=== PATIENT | female | born 1930 | race Caucasian/White ===

== ENCOUNTER 2017-09-25 07:13 | Inpatient (IN) | payer OTHER ==
[~2017-09-25] VITALS: Ht 157.5 cm; Wt 59.0 kg
[~2017-09-25 07:13] MED LIST: ACETAMINOPHEN-1 EAC1 PO; ACETAMINOPHEN325 M1 PO; ASPIR 8181 MG PO; ASPIRIN EC81 M1 PO; BACTRIM DS TAB1 EACH PO; BENEFIBER1 EAC1 PO; BENEFIBER98 GM; BYSTOLIC10 MG; CALCIUM 500 +1 EAC5 PO; CALCIUM 500 +1 EAC6 PO; CARDIZEM CD180 MG; CARVEDILOL3.125 MG PO; CENTANY30 GM TOP; CHLOR-TABLET4 MG PO; CLONAZEPAM 0.50.5 M1 PO; CLORTAB PO; CYMBALTA60 MG PO; DILTIAZEM 24HR180 M2 PO; DOXYCYCLINE 10100 MG PO; DULCOLAX5 MG PO; DULOXETINE HCL60 MG PO; ELIQUIS2.5 MG PO; ESTRADIOL 1 MG T1 M1 VAG; FAMOTIDINE 40 M40 M1 PO; I-CAPS AREDS S1 EACH PO; I-CAPS WITH LU1 EACH PO; IMDUR 30 MG TAB30 M1 PO; MYRBETRIQ50 MG; MYRBETRIQ50 MG PO; NASONEX17 GM; NASONEX17 GM NASAL; NITROGLYCERIN0.4 MG SL; NITROGLYCERIN0.4 MG SUBLING; NITROSTAT0.4 MG SL; NORVASC 2.5 MG2.5 M1 PO; PEPCID20 MG PO; PERCOCET PO; PLAVIX 75 MG TA75 M1 PER TUBE; PLAVIX 75 MG TA75 M1 PO; PRESERVISION AREDS PO; PRESERVISION T1 EACH PO; PROAIR HFA8.5 GM INH; PROVENTIL HFA6.7 G1 INH; QVAR 80 MCG INH; QVAR HFA 880 MCG/UN1 INH; QVAR8.7 G1; QVAR8.7 G1 INH; ROBAXIN 750 MG750 M1 PO; SANCTURA20 MG PO; SINGULAIR 10 MG10 M1 PO; SM COMPLETE SE1 EACH PO; THERA-M CAPLET1 EAC1 PO; TOPROL XL25 MG PO; TRIAMCINOLONE A80 GM TOP; TUMS PO; TYLENOL325 MG PO; UNICOMPLEX M TA1 TA1 PO; VENTOLIN HFA 1818 GM INH; ZOCOR 20 MG TAB20 M1 PO; ZOCOR20 MG PO
[2017-09-25 07:22] VITALS: BP 156/64
--- NOTE | 2017-09-25 07:59 | NUR ---
LAB DRAWING BLOOD
[2017-09-25 08:13] LABS: HEMATOCRIT 38.6 % (37.0-47.0); MPV 9.1 fl. (7.2-11.1); NUCLEATED RBCS 0 /100WBC; WBC 15.2 thou/uL (4.0-11.0)
[2017-09-25 08:14] LABS: HEMOGLOBIN 12.4 gm/dL (12.0-15.0); MCH 32.1 pg (26.0-34.0); MCHC 32.2 g/dL (28.0-37.0); MCV 99.8 fL (80.0-100.0); PLATELET COUNT* 159 thou/uL (150-400); RBC 3.86 mil/uL (4.20-5.00); RDW-CV 16.4 % (10.5-14.5)
[2017-09-25 08:22] LABS: ANION GAP 5 mmol/L (7-16); BUN 35 mg/dL (7-18); CALCIUM 9.2 mg/dL (8.5-10.1); CHLORIDE 103 mmol/L (98-107); CO2 32 mmol/L (21-32); CREATININE 1.3 mg/dL (0.6-1.3); GLUCOSE 115 mg/dL (70-99); POTASSIUM 4.6 mmol/L (3.5-5.1); SODIUM 140 mmol/L (136-145)
[2017-09-25 08:30] LABS: ALBUMIN 3.5 g/dL (3.4-5.0); ALKALINE PHOSPHATASE 124 U/L (46-116); SGOT 26 U/L (15-37); SGPT 31 U/L (30-65); TOTAL BILIRUBIN 0.6 mg/dL (<0.1-1.0); TOTAL PROTEIN 7.2 g/dL (6.4-8.2); TROPONIN-I LEVEL <0.06 ng/mL (<0.06)
[2017-09-25 08:58] LABS: ABSOLUTE BASOPHILS 0.2 thou/uL (0.0-0.2); ABSOLUTE LYMPHOCYTES 1.1 thou/uL (0.8-5.3); ABSOLUTE MONOCYTES 0.9 thou/uL (0.0-1.2); ABSOLUTE NEUTROPHILS 13.1 thou/uL (1.6-8.1); PLATELET ESTIMATE ADEQUATE
[2017-09-25 10:23] LABS: BE 2.5 mmol/L (-2 to +3); HCO3 27.8 mmol/L (22.0-26.0); PCO2 45.8 mmHg (35.0-45.0); PO2 80.1 mmHg (75.0-100.0); pH 7.401 (7.340-7.450)
[2017-09-25 10:50] VITALS: BP 129/51
--- NOTE | 2017-09-25 11:04 | NUR ---
RECEIVED REPORT FROM GASTON IN E.D. AT 1047. LABS REVIEWED. PT ARRIVED TO TELEMETRY AT 1105 VIA CART WITH DAUGHTER AT SIDE.
[2017-09-25 11:30] VITALS: BP 145/57
--- NOTE | 2017-09-25 13:51 | EKG ---
[place] [address] ELECTROCARDIOGRAM REPORT Name: JACKIE TRAN Room: [address] ADM IN .R.#: [id number] Admission: 09/25/17 Attend Phys: Padilla Gonzales Discharge: Date of : 30 Report #: [id number] THIS REPORT FOR: //name// [facility] ED Test Date: 2017-09-25 Test Time: 07:25:29 Pat Name: JACKIE TRAN Department: Room: [facility] Gender: F Kit Assembler: : 1930 Requested By: Afsaneh Doherty Order Number: [id number] MD: Anton Nelson Measurements Intervals [place] Rate: 71 P: 90 MO: 178 QRS: 70 QRSD: 111 T: 54 QT: 410 QTc: 446 Interpretive Statements Sinus rhythm Compared to ECG 08/11/2017 12:09:50 2:1 AV block no longer present Electronically Signed On 09-25-2017 13:51:26 HAT STOCK LAMINATING MACHINE OPERATOR by Anton Nelson [email or web address] <ELECTRONICALLY SIGNED> By: Anton Nelson MD, [facility] 09/25/17 1351 4 4 Anton Nelson MD, FAC /EPI
[2017-09-25 15:30] VITALS: BP 133/61
[2017-09-25 20:00] VITALS: BP 114/51
--- NOTE | 2017-09-25 20:04 | NUR ---
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 PT A&O X4, AUTOMATION ENGINEERING MANAGER TRACING NSR, VSS ON 2L O2 NC, WORN PRN AT HOME. PT LOST HER RESCUE INHALER AT HOME RESULTING IN SOA TODAY. PT SBA TO BATHROOM, FALL PRECAUTIONS IN PLACE, PT AGREES TO SCD'S. PT AFEBRILE, DENIES PAIN, PERRL, PEDAL AND RADIAL PULSES NORMAL, NO EDEMA NOTED. LCTAB/DIMINISHED. PT REPORTS THAT SHE WANTS TO BE DNR, NURSE DISCUSSED WHAT THAT MEANT AND PT STATED SHE UNDERSTOOD, WISHES WERE VERIFIED BY TWO NURSES , Thais AND DR Torsten TO BE NOTIFIED. PT LIVES IN A HOUSE WITH HER SON, WALKS INDEPENDENTLY BETWEEN FURNITURE OR OCC. USES A WALKER TO AMBULATE. REPORT TO SENIOR STATISTICAL PROGRAMMER FOR CONTINUED CARES.
[2017-09-26] VITALS: BP 141/54
[2017-09-26 04:09] VITALS: BP 149/68
--- NOTE | 2017-09-26 05:19 | NUR ---
PT A/O TO SELF/, UNABLE TO RECALL NAME OF HOSPITAL, AND STATED SHE CAN'T REMEMBER HER ADDRESS, SR ON THE MONITOR, PLACED ON 2L NC DUE TO 90% ON RA, REPORTED NO PAIN/SOA, UP SBA TO BATHROOM, MEDS/ASSESSMENT PER CHARTING, IN FLUIDS INFUSING PER ORDERS, HOURLY ROUNDING/FALL PRECAUTIONS IN PLACE, VSS, WILL CONT TO MONITOR.
[2017-09-26 08:15] VITALS: BP 173/78
[2017-09-26 12:19] VITALS: BP 143/66
--- NOTE | 2017-09-26 15:38 | NUR ---
INITIAL ASSESSMENT: Pt evaluated for d/c planning needs. Reviewed chart and spoke with nurse and pt. Pt is alert and oriented. Pt and her son live together in house. Pt said she was independent with and used walker for ambulation. Pt has home 02. Pt said she has not had home health in the past. Pt plans on returning home on d/c from hospital. Will remain available to assist as needed.
[2017-09-26 16:11] VITALS: BP 144/74
--- NOTE | 2017-09-26 17:00 | NUR ---
RECEIVED REPORT FROM MARA RN. PT LAYING IN SEMI-FOWLERS POSITION IN BED UPON INITIAL ASSESSMENT. ORIENTED X4, ABLE TO COMMUNICATE NEEDS TO STAFF. TRANSFER TO CHAIR FOR BREAKFAST WITH SBA. VS OBTAINED. ASSESSMENT COMPLETE. SR ON MONITOR. SATS >92% ON 2L O2. TOLERATING RESP TREATMENTS WELL. C/O DYSPNEA X2 TODAY. REINFORCED TEACHING R/T SEGOVIA AND RECOVERY BY BREATHING WITH SLOWER BREATHS. THERAPEUTIC COMMUNICATION TECHNIQUE: PRESENCE, LISTENING. CONTACTED RESPIRATORY THERAPIST FOR ASSESSMENT WELL. CONTACTED PHYSICIAN TO REPORT THAT PT REQUESTING XRAY EVAL OF NECK PAIN 5/10 PER NUMERIC PAIN SCALE. PT STATES SHE FELL ABOUT A MONTH AGO OR LONGER AND SINCE THEN HER NECK HURTS. PT STATES THAT SHE DID NOT GO TO DOCTOR AT TIME OF FALL. DIAGNOSTIC IMAGING ORDER PLACED, RADIOLOGY COMPLETED. CONTACTED PHYSICIAN TO REQUEST HOME DOSE OF DILTIAZEM 180 MG BID INSTEAD OF DAILY. ORDER RECEIVED. NEEDED ITEMS AND CALL LIGHT IN REACH OF PT AT ALL TIMES. BED/CHAIR ALARM IN USE PHYSICIAN TO
[2017-09-26 20:15] VITALS: BP 151/59
[2017-09-27] VITALS (7 sets, daily range): BP systolic 132–167; BP diastolic 54–67
[2017-09-27 04:41] LABS: HEMATOCRIT 32.1 % (37.0-47.0); HEMOGLOBIN 10.7 gm/dL (12.0-15.0); MCHC 33.5 g/dL (28.0-37.0); MCV 98.6 fL (80.0-100.0); MPV 8.8 fl. (7.2-11.1); RBC 3.25 mil/uL (4.20-5.00); RDW-CV 15.8 % (10.5-14.5); WBC 13.6 thou/uL (4.0-11.0)
[2017-09-27 05:24] LABS: CALCIUM 8.9 mg/dL (8.5-10.1); CREATININE 1.2 mg/dL (0.6-1.3); MAGNESIUM 1.8 mg/dL (1.8-2.4); POTASSIUM 4.5 mmol/L (3.5-5.1)
--- NOTE | 2017-09-27 05:36 | NUR ---
PT SLEPT AT INTERVALS DURING THE NIGHT, IV FLUIDS INFUSED, PLEASANT, UP WITH ASSIST AND WALKER TO BSC OR BATHROOM, STRESS INCONTINENCE, REMAINS ON 02 AT 3L/NC, BREATHING TREATMENT BY RT, SOA WITH EXERTION, CALL LIGHT IN REACH, BED ALARM ON FOR SAFETY, WILL CONTINUE TO MONITOR
--- NOTE | 2017-09-27 16:52 | NUR ---
RECEIVED REPORT FROM MARA RN. PT SLEEPING DURING BS REPORT. ONCE AWAKE, PT IS ORIENTED X4, ABLE TO COMMUNICATE NEEDS TO STAFF. TRANSFERS TO CHAIR WITH ASSIST OF 1 TO BSC/CHAIR. VS OBTAINED. ASSESSMENT COMPLETE. SR ON TELE MONITOR. SATS >92% ON 2L NC OXYGEN. DR. OLVERA TO BS FOR DAILY ASSESSMENT. PT HAS NOT C/O PAIN OR RESPIRATORY DISTRESS. PT HAS BEEN ABLE TO ENJOY RESTFUL PERIODS TODAY. PT HAS BEEN UP TO CHAIR FOR MEALS. DTR VISITING AT BS THIS AFTERNOON. NEEDED ITEMS AND CALL LIGHT IN REACH. BED/CHAIR ALARM IN USE AT ALL TIMES.
[2017-09-28 03:47] VITALS: BP 143/59
--- NOTE | 2017-09-28 05:58 | NUR ---
ASSUMED CARE OF PATIENT AT 1900 THE PATIENT BEGAN IN SR ON THE MONITOR O2 SAT MAINTAINED ON 2L NC IN AM NOTED CHANGE IN RHYTHM ON TELEMONITOR CONFIRMED WITH BEDSIDE EKG PATIENT TRANTITIONED TO CONTROLLED AFIB RATE 106 PATIENT CONTINUES REGIMEN FOR HX AFIB ET DENIES ANY S/SX OF DISCOMFORT DURING OCCURENCE SHE CONTINUES TO BE UP TO BSC WITH ASSIST SAFETY INTERVENTIONS CONTINUE BED LOWERED WHEELS LOCKED CALL LIGHT IN REACH SIDE RAILS UP REPORT TO BE GIVEN TO ONCBAYLEE MANDUJANO
[2017-09-28 09:15] VITALS: BP 117/54
[2017-09-28] MEDS ORDERED: QVAR8.7 GM INH (10:33)
[2017-09-28] MEDS ORDERED: VENTOLIN HFA 1818 GM INH (10:33)
[2017-09-28] MEDS ORDERED: LEVAQUIN 750 M750 MG PO (10:33)
[2017-09-28 11:51] VITALS: BP 117/54
[2017-09-28 12:05] VITALS: BP 112/56
--- NOTE | 2017-09-28 12:29 | EKG ---
[place] [address] ELECTROCARDIOGRAM REPORT Name: JACKIE TRAN Room: [address] ADM IN M.R.#: [id number] Admission: 09/25/17 Attend Phys: Padilla Gonzales Discharge: Date of : 30 Report #: [id number] THIS REPORT FOR: //name// [facility] Test Date: 2017-09-28 Test Time: 04:51:41 Pat Name: JACKIE TRAN Department: Room: [address] Gender: F Manager Compensation: [facility] : 1930 Requested By: Coery Morton Order Number: [id number] Justine MD: Neto Cochran Measurements Intervals [place] Rate: 106 P: [place]: QRS: 54 QRSD: 90 T: 50 QT: 323 QTc: 429 Interpretive Statements Atrial fibrillation Compared to ECG 09/25/2017 07:25:29 Sinus rhythm no longer present Electronically Signed On 09-28-2017 12:29:13 DRIVE IN TELLER by Neto Cochran [email or web address] <ELECTRONICALLY SIGNED> By: Neto Cochran MD, [facility] 09/28/17 1229 D: [id number] 0 Neto Cochran MD, FACC /EPI
== END 2017-09-28 17:15 | disposition home health service (06) | DRG 871 ==
LOC: M.ERS 07:13 → M.2W 10:25 → M.TBA-ER 10:25 → M.2W 11:15
PROVIDERS: Internal Medicine; Personal Emergency Response Attendant; ADMIT Internal Medicine
DX: A41.9 Sepsis, unspecified organism (principal); J15.9 Unspecified bacterial pneumonia; J96.01 Acute respiratory failure with hypoxia; J44.0 Chronic obstructive pulmonary disease with (acute) lower respiratory infection; E44.0 Moderate protein-calorie malnutrition; E78.00 Pure hypercholesterolemia, unspecified; N18.3 Chronic kidney disease, stage 3 (moderate); I12.9 Hypertensive chronic kidney disease with stage 1 through stage 4 chronic kidney disease, or unspecified chronic kidney disease; K21.9 Gastro-esophageal reflux disease without esophagitis; I48.91 Unspecified atrial fibrillation; I25.10 Atherosclerotic heart disease of native coronary artery without angina pectoris; I67.9 Cerebrovascular disease, unspecified; M47.812 Spondylosis without myelopathy or radiculopathy, cervical region; Z79.899 Other long term (current) drug therapy; Z87.891 Personal history of nicotine dependence; Z68.23 Body mass index [BMI] 23.0-23.9, adult; Z86.73 Personal history of transient ischemic attack (TIA), and cerebral infarction without residual deficits; I25.2 Old myocardial infarction; Z95.5 Presence of coronary angioplasty implant and graft

== ENCOUNTER 2017-12-21 09:28 | Inpatient (IN) | payer OTHER ==
[~2017-12-21] VITALS: Ht 157.5 cm; Wt 60.9 kg
[~2017-12-21 09:28] MED LIST changes: +LEVAQUIN 750 M750 MG PO; +QVAR8.7 GM INH
[2017-12-21 09:32] VITALS: BP 161/108
[2017-12-21 10:03] LABS: HEMATOCRIT 37.8 % (37.0-47.0); HEMOGLOBIN 12.2 gm/dL (12.0-15.0); MCH 31.6 pg (26.0-34.0); MCHC 32.4 g/dL (28.0-37.0); MCV 97.5 fL (80.0-100.0); MPV 8.1 fl. (7.2-11.1); NUCLEATED RBCS 0 /100WBC; PLATELET COUNT* 194 thou/uL (150-400); RBC 3.87 mil/uL (4.20-5.00); RDW-CV 15.7 % (10.5-14.5); WBC 11.7 thou/uL (4.0-11.0)
[2017-12-21 10:05] LABS: BE 2.5 mmol/L (-2 to +3); HCO3 27.6 mmol/L (22.0-26.0); PCO2 44.8 mmHg (35.0-45.0); PO2 96.5 mmHg (75.0-100.0); pH 7.408 (7.340-7.450)
[2017-12-21 10:11] LABS: ANION GAP 6 mmol/L (7-16); APTT 31.3 Seconds (25.0-31.3); BUN 31 mg/dL (7-18); CALCIUM 8.9 mg/dL (8.5-10.1); CHLORIDE 106 mmol/L (98-107); CO2 30 mmol/L (21-32); CREATININE 1.3 mg/dL (0.6-1.3); GLUCOSE 115 mg/dL (70-99); INR 1.1; POTASSIUM 4.7 mmol/L (3.5-5.1); PROTIME 10.3 Seconds (9.20-11.50); SODIUM 142 mmol/L (136-145)
[2017-12-21 10:21] LABS: ALBUMIN 3.5 g/dL (3.4-5.0); ALKALINE PHOSPHATASE 122 U/L (46-116); NT-PRO BRAIN NAT PEPTIDE 3156 pg/mL (<300); SGOT 26 U/L (15-37); SGPT 37 U/L (30-65); TOTAL BILIRUBIN 0.5 mg/dL (<0.1-1.0); TOTAL PROTEIN 7.3 g/dL (6.4-8.2); TROPONIN-I LEVEL <0.06 ng/mL (<0.06)
[2017-12-21 10:26] LABS: ABSOLUTE EOSINOPHILS 0.2 thou/uL (0.0-0.7); ABSOLUTE LYMPHOCYTES 0.9 thou/uL (0.8-5.3); ABSOLUTE MONOCYTES 1.1 thou/uL (0.0-1.2); ABSOLUTE NEUTROPHILS 9.5 thou/uL (1.6-8.1); ATYPICAL LYMPHS 1 %; PLATELET ESTIMATE ADEQUATE
[2017-12-21] MEDS ORDERED: CARDIZEM CD 18180 M3 PO (11:02)
[2017-12-21] MEDS ORDERED: PEPCID20 MG PO (11:04)
[2017-12-21] MEDS ORDERED: TRIAMCINOLONE A80 G2 TOP (11:05)
[2017-12-21] MEDS ORDERED: DULCOLAX5 MG PO (11:06)
[2017-12-21] MEDS ORDERED: TUMS PO (11:06)
[2017-12-21] MEDS ORDERED: LOPRESSOR25 PO (11:09)
[2017-12-21 12:04] VITALS: BP 173/101
[2017-12-21 12:10] VITALS: BP 150/89
[2017-12-21 16:30] VITALS: BP 135/69
--- NOTE | 2017-12-21 16:59 | EKG ---
[place] [address] ELECTROCARDIOGRAM REPORT Name: JACKIE TRAN Room: [address] ADM IN [facility].#: [id number] Admission: 12/21/17 Attend Phys: Liam Myers MD Discharge: Date of : 30 Report #: [id number] THIS REPORT FOR: //name// [facility] ED Test Date: 2017-12-21 Test Time: 09:39:54 Pat Name: JACKIE TRAN Department: Room: [facility] Gender: F Wine Steward/Stewardess: GIL : 1930 Requested By: James Pena Order Number: [id number] MD: Anton Nelson Measurements Intervals [place] Rate: 112 P: [place]: QRS: 24 QRSD: 105 T: 9 QT: 349 QTc: 477 Interpretive Statements Atrial flutter Borderline low voltage, extremity leads RSR' in V1 or V2, probably normal variant Minimal ST depression, diffuse leads Borderline prolonged QT interval Compared to ECG 09/28/2017 04:51:41 RSR' in V1 or V2 now present ST (T wave) deviation now present Atrial fibrillation no longer present Electronically Signed On 12-21-2017 16:58:51 CDT by Anton Nelson [email or web address] <ELECTRONICALLY SIGNED> By: Anton Nelson MD, [facility] 12/21/17 1658 Anton Nelson MD, [facility] /EPI
--- NOTE | 2017-12-21 18:33 | NUR ---
PATIENT RESTING IN BED. UP TO BSC WITH ASSISTX1. PATIENT RECEIVED 1X LASIX PER IV AND HAS ORDER FOR US GUIDED THORACENTESIS TOMORROW. VITAL SIGNS STABEL. AOX4. PATIENT IS HARD OF HEARING AND HAS VISION DEFFICIT. HEARING AIDS AND GLASSESS AT HOME, FAMILY INSTRUCTED TO BRING FOR PATIENT USAGE. HOURLY RONDING COMPLETED FOR PATIENT SAFETY AND PATIENT PROGRESSING TOWARDS GOALS. A FLUTTER ON MONITOR.
[2017-12-21 20:00] VITALS: BP 133/63
[2017-12-22] VITALS: BP 136/67
--- NOTE | 2017-12-22 03:46 | NUR ---
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 DENIES PAIN, HOURLY ROUNDING COMPLETED, CALL LIGHT WITHIN REACH. FALL PRECAUTIONS IN PLACE
[2017-12-22 04:00] VITALS: BP 106/57
[2017-12-22 05:14] LABS: ABSOLUTE LYMPHOCYTES 0.4 thou/uL (0.8-5.3); ABSOLUTE MONOCYTES 0.2 thou/uL (0.0-1.2); ABSOLUTE NEUTROPHILS 6.1 thou/uL (1.6-8.1); BASOPHILS 0.5 %; HEMATOCRIT 36.5 % (37.0-47.0); HEMOGLOBIN 12.3 gm/dL (12.0-15.0); LYMPHOCYTES 6.6 %; MCH 32.9 pg (26.0-34.0); MCHC 33.8 g/dL (28.0-37.0); MCV 97.3 fL (80.0-100.0); MONOCYTES 2.6 %; MPV 8.4 fl. (7.2-11.1); NUCLEATED RBCS 0 /100WBC; PLATELET COUNT* 181 thou/uL (150-400); POLYS 90.3 %; RBC 3.76 mil/uL (4.20-5.00); RDW-CV 15.8 % (10.5-14.5); WBC 6.7 thou/uL (4.0-11.0)
[2017-12-22 05:49] LABS: CALCIUM 9.3 mg/dL (8.5-10.1); CREATININE 1.5 mg/dL (0.6-1.3); POTASSIUM 4.2 mmol/L (3.5-5.1)
[2017-12-22 08:00] VITALS: BP 142/73
--- NOTE | 2017-12-22 09:24 | CON ---
[address] [address] CONSULTATION Name: JACKIE TRAN Room: [address] IN M.R.#: [id number] Admission: 12/21/17 Attend Phys: Liam Myers MD Discharge: Date of : 30 Report #: [id number] THIS REPORT FOR: //name// CC: Liam Mo MD [facility] TYPE OF REPORT: Cardiology consultation. INDICATION: Congestive heart failure. HISTORY OF PRESENT ILLNESS: The patient is a very pleasant 87-year-old white female who was admitted through the Emergency Room this morning, presenting with complaints of neck pain as well as dyspnea on exertion. By chest x-ray, she is noted to have a large right-sided pleural effusion. Her NT-pro-BNP was elevated consistent with acute heart failure. She has a history of coronary artery disease with percutaneous coronary intervention on 3 separate occasions. By echocardiogram, she appears to have preserved left ventricular systolic function. She denies any chest pain, tightness or pressure. She is not having palpitations, although she does have a history of chronic atrial flutter. Rate control has been somewhat difficult; however, with a combination of metoprolol succinate and diltiazem, she appears to be adequately rate controlled presently. She is chronically anticoagulated with Eliquis and having no bleeding problems. PAST MEDICAL HISTORY: 1. Chronic atrial flutter. 2. Coronary artery disease. 3. Hypertension. 4. Hyperlipidemia. 5. Chronic renal insufficiency. 6. COPD. 7. Diastolic heart failure. 8. TIA. 9. History of CVA. 10. GERD. PAST SURGICAL HISTORY: Previous carotid endarterectomy. FAMILY HISTORY: Noncontributory. SOCIAL HISTORY: The patient does not smoke. She does not drink alcohol. ALLERGIES: [place] [address] CONSULTATION Name: JACKIE TRAN Room: [address]#: [id number] Admission: 12/21/17 Attend Phys: Liam Myers MD Discharge: Date of : 30 Report #: [id number] HOME MEDICATIONS: Tylenol p.r.n., albuterol 2 puffs q. 4 hours p.r.n., Eliquis 2.5 mg p.o. b.i.d., aspirin 81 mg p.o. at bedtime, QVAR inhaler b.i.d., Dulcolax 5 mg daily, Tums 500 mg 2 tablets 4 times daily, Os-Bentley 500 mg 1 tablet daily, calcium with D supplement capsule at bedtime, chlorpheniramine 4 mg q. 4 hours p.r.n., diltiazem CD 180 mg at bedtime and 240 mg every day, duloxetine 60 mg daily, Pepcid 20 mg 2 tablets daily, metoprolol succinate 25 mg daily, Myrbetriq 50 mg daily, Nasonex spray 2 puffs daily, Singulair 10 mg daily, Thera-M caplet 1 daily, Nitrostat p.r.n., Aristocort cream topically 2-4 times daily and PreserVision eyedrops daily. PHYSICAL EXAMINATION: VITAL SIGNS: Blood pressure 173/101 and pulse presently in the 60s and irregular. GENERAL: This is an elderly white female who is in no distress. Mood and affect appropriate. HEENT: Extraocular muscles intact. NECK: Shows no jugular venous distention. I do not appreciate carotid bruit. CHEST: Reveals diminished breath sounds with absence of breath sounds in the right base. CARDIOVASCULAR: Reveals an irregularly irregular rhythm without gallop or murmur. ABDOMEN: Reveals normal bowel sounds. EXTREMITIES: Examination extremities show no edema. SKIN: Warm and dry. RADIOLOGICAL DATA: A 12-lead EKG shows atrial flutter with a rapid ventricular response rate. On telemetry, she is in atrial flutter with a controlled ventricular response rate. Chest x-ray shows a right pleural effusion and mild cardiomegaly. LABORATORY DATA: Labs were reviewed and were remarkable for BUN 31 and creatinine 1.3. Troponin of less than 0.06. NT-pro-BNP of 3156. IMPRESSION AND RECOMMENDATIONS: 1. Fdbjy-yt-nrkqsxl diastolic heart failure. We will give bolus IV Lasix and check labs in a.m. We will obtain echocardiogram to reevaluate left ventricular systolic function. 2. Coronary artery disease, presently stable. She is not having angina. 3. Atrial flutter. Continue medications outlined above for rate control. There have been some discussions for possible pacemaker placement to facilitate rate control in this patient. 4. Hypertension. We will adjust blood pressure medications as needed. 5. Hyperlipidemia. The patient has been having some myalgias and is off her statin agent presently. [address] [address] CONSULTATION Name: JACKIE TRAN Room: [facility] IN M.R.#: [id number] Admission: 12/21/17 Attend Phys: Liam Myers MD Discharge: Date of : 30 Report #: [id number] 6. Chronic renal insufficiency, appears relatively stable at this time. 7. Chronic obstructive pulmonary disease, presently stable. <ELECTRONICALLY SIGNED> By: Anton Nelson MD, FACC 12/22/17 0924 [id number] Nelson MD, FACC /nt
[2017-12-22 11:36] VITALS: BP 139/80
[2017-12-22 12:26] LABS: BF RBC 23680 /mm3; TOTAL CELL COUNT 928 /mm3
[2017-12-22 12:27] LABS: CLARITY SLIGHTLY HAZY; COLOR RED; TOTAL VOLUME 460 ml
[2017-12-22 12:32] LABS: BF LYMPHOCYTES 78 %; BF MONOCYTES 15 %; BF POLYS 7 %; BF TISSUE 4 /100 WBC
[2017-12-22 12:33] LABS: SOURCE THORACENTESIS
--- NOTE | 2017-12-22 15:05 | NUR ---
CM ASSESSMENT: Pt is A&O. Resides at home with her son. Independent with ADLs. Pt has a walker that she can use for mobility. Pt wears home o2 at [facility]. No hx of HH or SNF. Pt had thora today. Goal is to return home once medically stable. Following.
[2017-12-22 15:24] VITALS: BP 120/54
--- NOTE | 2017-12-22 18:40 | NUR ---
PATINET RESTING IN BED WTH FAMILY AT BEDSIDE. VITAL SIGNS STABLE ANDPAITET IN NO APPARENT DISTRESS AT THIAS TIME. THOARCENTESIS WAS COMPLETED TODAY. HOURLY ROUNDING COMPLETED FOR PATIETN SAFETY AND PATINET IS PROGRESSING TOWARDS GOALS. PLAN IS FOR POSSIBLE PACEMAKER PLACEMENT ON FRIDAY.
[2017-12-22 19:46] VITALS: BP 112/65
[2017-12-23] VITALS: BP 116/74
--- NOTE | 2017-12-23 03:56 | NUR ---
ASSUMED CARE OF PT AT 1930, NURSING ASSESSMENT COMPLETED AT START OF SHIFT. PT TRACING AFLUTTER ON HEART MONITOR, HOURLY ROUNDING COMPLETED THIS SHIFT, FALL PRECAUTIONS IN PLACE, CALL LIGHT WITHIN REACH. NO CONCERNS VOICED THIS SHIFT.
[2017-12-23 04:00] VITALS: BP 128/84
[2017-12-23 05:49] LABS: ABSOLUTE LYMPHOCYTES 0.6 thou/uL (0.8-5.3); ABSOLUTE MONOCYTES 0.7 thou/uL (0.0-1.2); ABSOLUTE NEUTROPHILS 14.7 thou/uL (1.6-8.1); HEMATOCRIT 35.1 % (37.0-47.0); HEMOGLOBIN 11.7 gm/dL (12.0-15.0); LYMPHOCYTES 3.9 %; MCH 32.1 pg (26.0-34.0); MCHC 33.4 g/dL (28.0-37.0); MCV 96.2 fL (80.0-100.0); MONOCYTES 4.2 %; MPV 8.7 fl. (7.2-11.1); NUCLEATED RBCS 0 /100WBC; PLATELET COUNT* 187 thou/uL (150-400); POLYS 91.9 %; RBC 3.64 mil/uL (4.20-5.00)
[2017-12-23 06:04] LABS: ALBUMIN 3.1 g/dL (3.4-5.0); CREATININE 1.7 mg/dL (0.6-1.3); POTASSIUM 4.4 mmol/L (3.5-5.1); TOTAL BILIRUBIN 0.3 mg/dL (<0.1-1.0); TOTAL PROTEIN 6.7 g/dL (6.4-8.2)
[2017-12-23 08:00] VITALS: BP 140/67
[2017-12-23 15:46] VITALS: BP 134/66
--- NOTE | 2017-12-23 16:35 | 2DMMODE ---
[place] [address] 2 D/M-MODE ECHOCARDIOGRAM Name: JACKIE TRAN Room: [address] IN [facility]#: [id number] Admission: 12/21/17 Attend Phys: Liam Myers, Discharge: Date of : 30 Date of Service: 12/22/17 1627 Report #: [id number] THIS REPORT FOR: //name// APPROVED REPORT Study performed: 12/22/2017 15:32:54 EXAM: Comprehensive 2D, Doppler, and color-flow Echocardiogram Patient Location: In-Patient Room #: [facility] Status: routine BSA: 1.62 HR: 74 bpm BP: 142/73 mmHg Rhythm: Atrial Flutter Other Information Study Quality: Good Indications Dyspnea 2D Dimensions LVEF(%): 72.89 (>50%) IVSd: 11.01 (7-11mm) LVOT Diam: 17.14 (18-24mm) LVDd: 36.91 mm PWd: 8.33 (7-11mm) Ascending Ao: 24.23 (22-36mm) LVDs: 21.71 (25-40mm) Aortic Root: 27.35 mm Olivo's LVEF: 72.89 % Volumes Left Atrial Volume (Systole) LA ESV Index: 38.10 mL/m2 Aortic Valve AoV Peak Rodrigo.: 1.46 m/s AO Peak Gr.: 8.56 mmHg LVOT Max P.08 mmHg AO Mean Gr.: 5.05 mmHg LVOT Mean P.01 mmHg LVOT Max V: 0.72 m/s AO V2 VTI: 30.75 cm LVOT Mean V: 0.46 m/s FIDENCIO (VTI): 1.19 cm2 LVOT V1 VTI: 15.81 cm Mitral Valve MV Decel. Time: 117.53 [place] [address] 2 D/M-MODE ECHOCARDIOGRAM Name: JACIKE TRAN Room: [address] IN [facility]#: [id number] Admission: 12/21/17 Attend Phys: Liam Myers, Discharge: Date of : 30 Date of Service: 12/22/17 1627 Report #: [id number] MV PHT: 34.08 ms MVA (PHT): 6.45 cm2 TDI Medial E' Rodrigo.: 0.12 m/s Lateral E' Rodrigo.: 0.15 m/s Pulmonary Valve PV Peak Rodrigo.: 0.91 m/s PV Peak Gr.: 3.29 mmHg Tricuspid Valve TR Peak Gr.: 37.18 mmHg RVSP: 42.00 mmHg Left Ventricle The left ventricle is normal size. There is normal LV segmental wall motion. There is normal left ventricular wall thickness. Left ventricular systolic function is normal. The left ventricular ejection fraction is within the normal range. LVEF is 55%. This study is not technically sufficient to allow evaluation of the LV diastolic function due to atrial fibrillation. Right Ventricle The right ventricle is normal size. The right ventricular systolic function is normal. Atria Left atrium is moderately dilated. The right atrium size is normal. Aortic Valve Mild aortic valve sclerosis. No aortic regurgitation is present. No hemodynamically significant valvular aortic stenosis. Mitral Valve The mitral valve is normal in structure. Mild mitral regurgitation. No evidence of mitral valve stenosis. Tricuspid Valve The tricuspid valve is normal in structure. Moderate tricuspid regurgitation. The RVSP is 40-45 mmHg. Pulmonic Valve The pulmonary valve is normal in structure. There is no pulmonic [place] [address] 2 D/M-MODE ECHOCARDIOGRAM Name: JACKIE TRAN Room: [address] IN [facility]#: [id number] Admission: 12/21/17 Attend Phys: Liam Myers, Discharge: Date of : 30 Date of Service: 12/22/17 1627 Report #: [id number] The aortic root is normal in size. IVC is normal in size and collapses with >50% inspiration Pericardium There is no pericardial effusion. <Conclusion> The left ventricle is normal size. There is normal left ventricular wall thickness. Left ventricular systolic function is normal. The left ventricular ejection fraction is within the normal range. LVEF is 55%. This study is not technically sufficient to allow evaluation of the LV diastolic function due to atrial fibrillation. The right ventricle is normal size. Left atrium is moderately dilated. Mild aortic valve sclerosis. No aortic regurgitation is present. No hemodynamically significant valvular aortic stenosis. The mitral valve is normal in structure. Mild mitral regurgitation. The tricuspid valve is normal in structure. Moderate tricuspid regurgitation. The RVSP is 40-45 mmHg. IVC is normal in size and collapses with >50% inspiration There is no pericardial effusion. There is normal LV segmental wall motion. <ELECTRONICALLY SIGNED> By: Bart Blanca MD, FACC 12/22/17 1627 [id number] Bart Blanca MD, FACC /INF
--- NOTE | 2017-12-23 18:47 | NUR ---
PATIENT RESTING IN BED. UP WITH ASSIST X1 AD LEFT ARM PRECAUTIONS WITH NEW PACEMAKER PLACEMENT TODAY. REBEL IS STILL SLEEPY AFTER HER SURGERY TODAY. AOX4. HOURLY ROUNDING COMPLETD FOR PATIENT SAFETY.
[2017-12-23 20:00] VITALS: BP 155/68
[2017-12-24] VITALS: BP 136/72
--- NOTE | 2017-12-24 03:55 | NUR ---
ASSUMED PT CARE AT 1910, NURSING ASSESSMENT COMPLETED AT START OF SHIFT, PT VOICED NO CONCERNS, PT ON TELE MONITOR TRACING AFLUTTER/V PACED. PT DENIES PAIN, WEARING SLING TO LEFT ARM FOR POST PACEMAKER PLACEMENT. CALL LIGHT REMAINS WITHIN REACH. PROGRESSING TOWARDS GOALS.
[2017-12-24 04:01] VITALS: BP 146/68
[2017-12-24 05:31] LABS: ABSOLUTE LYMPHOCYTES 1.4 thou/uL (0.8-5.3); ABSOLUTE NEUTROPHILS 10.4 thou/uL (1.6-8.1); BASOPHILS 0.1 %; EOSINOPHILS 0.1 %; HEMATOCRIT 33.8 % (37.0-47.0); HEMOGLOBIN 11.2 gm/dL (12.0-15.0); LYMPHOCYTES 10.9 %; MCHC 33.2 g/dL (28.0-37.0); MCV 96.6 fL (80.0-100.0); MONOCYTES 8.1 %; MPV 8.7 fl. (7.2-11.1); NUCLEATED RBCS 0 /100WBC; PLATELET COUNT* 177 thou/uL (150-400); POLYS 80.8 %; RDW-CV 15.8 % (10.5-14.5); WBC 12.9 thou/uL (4.0-11.0)
[2017-12-24 05:50] LABS: ALBUMIN 2.8 g/dL (3.4-5.0); CALCIUM 8.5 mg/dL (8.5-10.1); CREATININE 1.5 mg/dL (0.6-1.3); POTASSIUM 4.1 mmol/L (3.5-5.1); TOTAL BILIRUBIN 0.3 mg/dL (<0.1-1.0); TOTAL PROTEIN 6.1 g/dL (6.4-8.2)
[2017-12-24 07:20] VITALS: BP 154/74
--- NOTE | 2017-12-24 10:32 | NUR ---
RECEIVED PT CARE 0700. PT IS ALERT AND ORIENTED X4, FORGETFUL AT TIMES. VSS. PILOT TRACING A-FLUTTER. PATIENT DENIES ANY SOA, O2 SAT 94% ON 1L NC, TITRATED TO ROOM AIR AFTER PATIENT WOKE UP. STATES SHE WEARS 1L NC AT HOME WHEN SHE SLEEPS. AM ASSESSMENT CHARTED. MEDS PER MAR. PATIENT IS UP WITH ASSIST X1 TO BEDSIDE COMMODE. IVF INFUSING. PLAN FOR PT/OT TO EVALUATE PATIENT AND PLAN FOR DC TOMORROW IF STABLE. PATIENT UP TO DATE WITH THE PLAN OF CARE. CALL LIGHT WITHIN REACH. WILL CONTINUE TO MONITOR.
[2017-12-24 11:35] VITALS: BP 121/55
[2017-12-24 13:14] LABS: BODY FLUID PH 8.1 (Not Estab.)
[2017-12-24 16:56] VITALS: BP 111/53
--- NOTE | 2017-12-24 18:12 | NUR ---
PATIENT PROGRESSING TOWARDS GOALS. NO COMPLAINTS OF PAIN THIS SHFIT. TOLERATED PHYSICAL AND OCCUPATIONAL THERAPY WELL THIS AFTERNOON. PATIENT AND FAMILY AGREEABLE FOR PATIENT TO DC TO SNF AND GET MORE THERAPY BEFORE GOING HOME. SHE IS TOLERATING HER DIET WELL WITHOUT NAUSEA OR VOMITING. BED ALARM ON. CALL LIGHT WITHIN REACH. WILL CONTINUE TO MONITOR.
[2017-12-24 20:00] VITALS: BP 139/66
[2017-12-25] VITALS: BP 132/62
[2017-12-25 04:00] VITALS: BP 157/76
[2017-12-25 04:42] LABS: ABSOLUTE BASOPHILS 0.1 thou/uL (0.0-0.2); ABSOLUTE EOSINOPHILS 0.3 thou/uL (0.0-0.7); ABSOLUTE LYMPHOCYTES 1.2 thou/uL (0.8-5.3); ABSOLUTE MONOCYTES 1.1 thou/uL (0.0-1.2); ABSOLUTE NEUTROPHILS 8.9 thou/uL (1.6-8.1); BASOPHILS 0.5 %; EOSINOPHILS 2.9 %; HEMATOCRIT 35.2 % (37.0-47.0); HEMOGLOBIN 11.5 gm/dL (12.0-15.0); LYMPHOCYTES 10.2 %; MCH 31.9 pg (26.0-34.0); MCHC 32.8 g/dL (28.0-37.0); MCV 97.3 fL (80.0-100.0); MONOCYTES 9.6 %; MPV 8.5 fl. (7.2-11.1); NUCLEATED RBCS 0 /100WBC; PLATELET COUNT* 174 thou/uL (150-400); POLYS 76.8 %; RBC 3.62 mil/uL (4.20-5.00); RDW-CV 15.6 % (10.5-14.5); WBC 11.5 thou/uL (4.0-11.0)
[2017-12-25 05:13] LABS: ALBUMIN 2.8 g/dL (3.4-5.0); CALCIUM 8.6 mg/dL (8.5-10.1); CREATININE 1.5 mg/dL (0.6-1.3); POTASSIUM 4.3 mmol/L (3.5-5.1); TOTAL BILIRUBIN 0.2 mg/dL (<0.1-1.0); TOTAL PROTEIN 6.1 g/dL (6.4-8.2)
--- NOTE | 2017-12-25 05:45 | NUR ---
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 HOURLY ROUNDING COMPLETED, CALL LIGHT WITHIN REACH. PT SLOWLY PROGRESSING TOWARDS GOALS.
[2017-12-25 08:00] VITALS: BP 144/67
[2017-12-25 08:06] VITALS: BP 157/76
--- NOTE | 2017-12-25 10:21 | NUR ---
Pt and family want skilled. DC orders written. Faxed referral to both [facility] and [facility] per Pt's request, first choice is [facility]. Awaiting insurance auth.
[2017-12-25] MEDS ORDERED: AUGMENTIN 875-1 EACH PO (10:48)
[2017-12-25 10:49] VITALS: BP 157/76
--- NOTE | 2017-12-25 11:03 | NUR ---
Pt discharging to [facility] today at 130, facility will burr picker. Chart copied. Nurse report number provided, . Faxed dc orders. Dtr in room and aware of disposition.
[2017-12-25 11:42] VITALS: BP 156/63
--- NOTE | 2017-12-26 11:51 | CARD ---
[address] [address] CARDIAC CATH REPORT Name: JACKIE TRAN Room: [address]#: [id number] Admission: 12/21/17 Attend Phys: Liam Myers MD Discharge: 12/25/17 Date of : 30 Report #: [id number] THIS REPORT FOR: //name// APPROVED REPORT Study performed: 12/23/2017 09:59:49 Patient Status: In-Patient Room #: Event Personnel: Thelma Wilburn RN, Sandy Lima Monitor, Sabina Esquivel RTR BroubLeslie Michael Complex Manager Exam: Insertion of Single Chamber Permanent Pacemaker Indications: atrial fibrillation with a slow ventricular response The patient is a 87 year-old female with a history of . Conscious Sedation Fentanyl 25 mcg Versed 1 mg Implanted Devices: Biotronik Eluna 8 SRT pro-MRI, model #778387, serial #[id number] Biotronik Solia S 53, model #244598, serial #[id number] Procedure The patient underwent informed consent. We discussed the details of the procedure including the risks, which include, but not limited to bleeding, infection, vascular damage, cardiac perforation, and pneumothorax. During this case, Fluoroscopy and visipaque 10cc were used for imaging. After informed consent was obtained the patient was brought to the cardiac catheterization lab. The area of the left shoulder was prepped and draped in sterile fashion. Local anesthesia was achieved with 1% lidocaine. Next after an initial incision was made a pacemaker pocket was formed over the left pectoralis muscle using electrocautery and blunt dissection. Next using a micropuncture kit the left subclavian vein was accessed using the percutaneous technique. Ultimately a safety J guidewire was advanced to the area of the right atrium under fluoroscopic guidance. Next a 7 Yoruba tear-away introducer was advanced over the guidewire. The dilator and guidewire were removed as a right ventricular lead was advanced to a secure position along the right ventricular septum. The lead was actively fixed. Thresholds were checked and deemed to be satisfactory. After adequate slack was assured the tear-away introducer was removed and the lead was [place] [address] CARDIAC CATH REPORT Name: JACKIE TRAN Room: [address]#: [id number] Admission: 12/21/17 Attend Phys: Liam Myers MD Discharge: 12/25/17 Date of : 30 Report #: [id number] pocket using the designated cuff and 2-0 silk suture. The pocket was then flushed with antibiotic solution. Next a single-chamber pulse generator was attached to the ventricular lead. The redundant lead and generator were then placed within the device pocket. The deep tissues were closed using interrupted stitches of 2-0 Vicryl. The skin incision was then closed with a single subcuticular stitch of 4-0 Vicryl. Several Steri-Strips were placed across the incision. A sterile Telfa dressing was then covered with a Tegaderm. The patient tolerated procedure well without complication. Electrode Parameters R Wave: 7.90 mV Ventricular Threshold: 1.40 V at 0.75 ms Ventricular Resistance: 760 ohms Conclusion 1. Atrial fibrillation with slow ventricular response. 2. Successful implantation of a single-chamber pacemaker. Recommendations 1. Follow-up site check in one week. 2. Follow-up in office pacemaker check in one to 2 months. <ELECTRONICALLY SIGNED> By: Anton Nelson MD, FACC 12/26/17 1151 115 [id number] Nelson MD, FACC /INF
[2017-12-28 10:49] LABS: BODY FLUID AMYLASE 8; BODY FLUID LDH 103; BODY FLUID PROTEIN 2.3
== END 2017-12-25 13:39 | DRG 242 ==
LOC: M.ERS 09:28 → M.TBA-ER 10:46 → M.2W 10:46
PROVIDERS: Family Medicine; Internal Medicine Cardiovascular Disease; ADMIT Internal Medicine
PROC: 0W993ZZ Drainage of Right Pleural Cavity, Percutaneous Approach (ICD-10-PCS; principal; 2017-12-22)
PROC: B24BZZ4 Ultrasonography of Heart with Aorta, Transesophageal (ICD-10-PCS; principal; 2017-12-22)
PROC: 0JH604Z Insertion of Pacemaker, Single Chamber into Chest Subcutaneous Tissue and Fascia, Open Approach (ICD-10-PCS; 2017-12-23)
PROC: 02HK3JZ Insertion of Pacemaker Lead into Right Ventricle, Percutaneous Approach (ICD-10-PCS; 2017-12-23)
DX: I13.0 Hypertensive heart and chronic kidney disease with heart failure and stage 1 through stage 4 chronic kidney disease, or unspecified chronic kidney disease (principal); J69.0 Pneumonitis due to inhalation of food and vomit; J96.21 Acute and chronic respiratory failure with hypoxia; I50.33 Acute on chronic diastolic (congestive) heart failure; R65.11 Systemic inflammatory response syndrome (SIRS) of non-infectious origin with acute organ dysfunction; J44.1 Chronic obstructive pulmonary disease with (acute) exacerbation; I48.92 Unspecified atrial flutter; J90 Pleural effusion, not elsewhere classified; F03.90 Unspecified dementia, unspecified severity, without behavioral disturbance, psychotic disturbance, mood disturbance, and anxiety; I25.10 Atherosclerotic heart disease of native coronary artery without angina pectoris; N18.3 Chronic kidney disease, stage 3 (moderate); E78.00 Pure hypercholesterolemia, unspecified; K21.9 Gastro-esophageal reflux disease without esophagitis; I48.91 Unspecified atrial fibrillation; I25.2 Old myocardial infarction; Z87.891 Personal history of nicotine dependence; Z86.73 Personal history of transient ischemic attack (TIA), and cerebral infarction without residual deficits; Z95.5 Presence of coronary angioplasty implant and graft; Z79.01 Long term (current) use of anticoagulants; Z79.82 Long term (current) use of aspirin; Z79.899 Other long term (current) drug therapy

== ENCOUNTER 2018-01-01 15:29 | Inpatient (IN) | payer OTHER ==
[~2018-01-01] VITALS: Ht 157.5 cm; Wt 59.4 kg
[~2018-01-01 15:29] MED LIST changes: +AUGMENTIN 875-1 EACH PO; +CARDIZEM CD 18180 M3 PO; +LOPRESSOR25 PO; +TRIAMCINOLONE A80 G2 TOP
[2018-01-01 15:31] VITALS: BP 162/57
[2018-01-01] MEDS ORDERED: BIOFREEZE118 ML TOP (15:39)
[2018-01-01] MEDS ORDERED: DOXYCYCLINE 10100 MG (15:41)
[2018-01-01] MEDS ORDERED: ELIQUIS2.5 MG PO (15:41)
[2018-01-01] MEDS ORDERED: GUAIFENESIN ER600 MG PO (15:42)
[2018-01-01] MEDS ORDERED: HYDROXYZINE HCL25 M1 PO (15:42)
[2018-01-01] MEDS ORDERED: DUONEB 2.5-0.5 M3 ML INH (15:43)
[2018-01-01] MEDS ORDERED: LOPERAMIDE 2 MG2 M1 PO (15:43)
[2018-01-01] MEDS ORDERED: MILK OF MA2400 MG/10 PO (15:44)
[2018-01-01] MEDS ORDERED: PREDNISONE 10 M10 MG PO (15:45)
[2018-01-01] MEDS ORDERED: NASONEX17 GM NASAL (15:45)
[2018-01-01] MEDS ORDERED: OCUVITE LUTEIN1 EAC1 PO (15:45)
[2018-01-01] MEDS ORDERED: QVAR REDIHALE10.6 G1 INH (15:46)
[2018-01-01 16:01] LABS: HEMATOCRIT 37.1 % (37.0-47.0); HEMOGLOBIN 12.2 gm/dL (12.0-15.0); MCHC 32.9 g/dL (28.0-37.0); MCV 97.5 fL (80.0-100.0); MPV 8.4 fl. (7.2-11.1); NUCLEATED RBCS 0 /100WBC; PLATELET COUNT* 181 thou/uL (150-400); RDW-CV 16.2 % (10.5-14.5); WBC 10.8 thou/uL (4.0-11.0)
[2018-01-01 16:09] LABS: PROTIME 10.1 Seconds (9.20-11.50)
[2018-01-01 16:10] LABS: ANION GAP 10 mmol/L (7-16); BUN 27 mg/dL (7-18); CALCIUM 9.5 mg/dL (8.5-10.1); CHLORIDE 102 mmol/L (98-107); CO2 29 mmol/L (21-32); CREATININE 1.5 mg/dL (0.6-1.3); GLUCOSE 146 mg/dL (70-99); POTASSIUM 4.6 mmol/L (3.5-5.1); SODIUM 141 mmol/L (136-145)
[2018-01-01 16:26] LABS: ALBUMIN 3.7 g/dL (3.4-5.0); ALKALINE PHOSPHATASE 130 U/L (46-116); LIPASE 33 U/L (73-393); NT-PRO BRAIN NAT PEPTIDE 6963 pg/mL (<300); SGOT 32 U/L (15-37); SGPT 58 U/L (30-65); TOTAL BILIRUBIN 0.4 mg/dL (<0.1-1.0); TOTAL PROTEIN 7.8 g/dL (6.4-8.2); TROPONIN-I LEVEL <0.06 ng/mL (<0.06)
[2018-01-01 16:47] LABS: ABSOLUTE LYMPHOCYTES 0.8 thou/uL (0.8-5.3); ABSOLUTE MONOCYTES 0.4 thou/uL (0.0-1.2); ABSOLUTE NEUTROPHILS 9.6 thou/uL (1.6-8.1)
[2018-01-01 16:48] LABS: PLATELET ESTIMATE ADEQUATE
[2018-01-01 17:21] VITALS: BP 146/80
[2018-01-01 17:30] VITALS: BP 146/79
[2018-01-01 20:00] VITALS: BP 137/69
[2018-01-02] VITALS (7 sets, daily range): BP systolic 134–162; BP diastolic 58–95
--- NOTE | 2018-01-02 10:55 | EKG ---
[place] [address] ELECTROCARDIOGRAM REPORT Name: JACKIE TRAN Room: [address] IN [facility]#: [id number] Admission: 01/01/18 Attend Phys: Padilla Gonzales Discharge: Date of : 30 Report #: [id number] THIS REPORT FOR: //name// [facility] ED Test Date: 2018-01-01 Test Time: 15:39:02 Pat Name: JACKIE TRAN Department: Room: Gender: Hole Digger: Vamshi ZELAYA : 1930 Requested By: Emilio Obrien Order Number: [id number] MD: Neto Cochran Measurements Intervals [place] Rate: 91 P: 95 AK: 104 QRS: 100 QRSD: 137 T: QT: 539 QTc: 664 Interpretive Statements Atrial flutter nonspecific t wave changes Compared to ECG 12/21/2017 09:39:54 rate slowed Electronically Signed On 01-02-2018 10:55:15 CDT by Neto oCchran [email or web address] <ELECTRONICALLY SIGNED> By: Neto Cochran MD, [facility] 01/02/18 1055 1539 1539 Neto Cochran MD, [facility] /EPI
[2018-01-03 03:47] VITALS: BP 168/88
[2018-01-03 06:49] VITALS: BP 169/87
[2018-01-03 07:30] VITALS: BP 159/98
[2018-01-03 12:00] VITALS: BP 146/75
[2018-01-03 16:22] VITALS: BP 148/73
[2018-01-03 20:15] VITALS: BP 145/70
[2018-01-04] VITALS (7 sets, daily range): BP systolic 131–152; BP diastolic 43–73
[2018-01-05 03:44] VITALS: BP 153/73
[2018-01-05 05:02] LABS: HEMATOCRIT 35.8 % (37.0-47.0); MCHC 33.4 g/dL (28.0-37.0); MCV 95.7 fL (80.0-100.0); MPV 8.5 fl. (7.2-11.1); RBC 3.74 mil/uL (4.20-5.00); RDW-CV 15.6 % (10.5-14.5); WBC 10.7 thou/uL (4.0-11.0)
[2018-01-05 05:17] LABS: CALCIUM 8.7 mg/dL (8.5-10.1); CREATININE 1.9 mg/dL (0.6-1.3); MAGNESIUM 2.9 mg/dL (1.8-2.4); POTASSIUM 4.4 mmol/L (3.5-5.1); TOTAL BILIRUBIN 0.3 mg/dL (<0.1-1.0); TOTAL PROTEIN 6.2 g/dL (6.4-8.2)
--- NOTE | 2018-01-05 07:49 | CON ---
[address] [address] CONSULTATION Name: JACKIE TRAN Room: [address] IN .R.#: [id number] Admission: 01/01/18 Attend Phys: Padilla Gonzales Discharge: Date of : 30 Report #: [id number] THIS REPORT FOR: //name// CC: Tamiko Morton DATE OF SERVICE: 01/04/2018 PULMONARY CONSULTATION REFERRING PHYSICIAN: Corey Morton DO. CHIEF COMPLAINT: Respiratory distress. HISTORY OF PRESENT ILLNESS: The patient is an 87-year-old female who was admitted to the hospital earlier in the month of November, on 12/21/2017 and discharged on 12/25/2017. She had discharge diagnoses of aspiration, possible pneumonia and [id number]-gptmbxl respiratory failure. She also had had a pleural effusion, status post thoracentesis. The patient was discharged to a rehab facility. After a few days, she was readmitted to the hospital, sent back via ambulance because of increasing shortness of breath. The patient had not had any other symptomatology. She denies cough, phlegm production, fever, chills, nausea, vomiting, abdominal pain or chest pain. She has been compliant with her medication. Since being admitted to the hospital, she feels maybe she is somewhat better, not having as much short windedness. Her oxygen requirements have been continuous, whereas before admission to the hospital, before her pneumonia problems, she had been using oxygen on a p.r.n. basis during the day and at night time. She does follow with Dr. Miller in our office. She had been diagnosed with chronic obstructive airways disease. 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 She also has a history of CVA with memory deficit, chronic oxygen therapy, stage 3 kidney disease. She has had carotid endarterectomy in the past. ALLERGIES: No known medication allergies. FAMILY HISTORY: Noncontributory for the patient's advanced age. REVIEW OF SYSTEMS: System review negative, other than what is outlined above. MEDICATIONS: [place] [address] CONSULTATION Name: JACKIE TRAN Room: [address]#: [id number] Admission: 01/01/18 Attend Phys: Padilla Gonzales Discharge: Date of : 30 Report #: [id number] PHYSICAL EXAMINATION: VITAL SIGNS: On exam, blood pressure 139/66, respiratory rate 17 and nonlabored, pulse rate 79 and appears irregular at this time and temperature 98 degrees. Her weight is 136 pounds. O2 saturation on 4 liters was 97%. GENERAL APPEARANCE: Awake, alert and oriented. She does have some tremor of the upper extremities. They seem to be amplified or aggravated by the beta agonist agents receiving for exacerbation of her COPD. She is awake, alert. She is oriented to person and place. Daughter is present, provides additional history as well. HEAD: Atraumatic. EYES: Pupils are round, equal and reactive. ORAL CAVITY: Moist. No lesions. NECK EXAMINATION: There is no adenopathy or carotid bruits. CHEST: Reveals a few scattered rhonchi. I cannot appreciate any wheezing today. She does have good breath sounds bilaterally. CARDIOVASCULAR EXAMINATION: Reveals irregular rhythm. ABDOMEN: Soft, without organomegaly. No tenderness. SKIN: Warm and dry. No rash effect. EXTREMITIES: There is no evidence of edema or clubbing. No evidence of cyanosis. LYMPHATIC: Negative for adenopathy. NEUROLOGIC: She is able to move all 4 extremities. Strength is diminished bilaterally. LABORATORY DATA: Pleural fluid from 12/22/2017 revealed a protein of 8.1. On admission, her electrolytes reveal sodium 141, potassium 4.6, chloride 102, CO2 of 29, BUN of 27, creatinine 1.5 and EGFR 33. Troponin less than 0.06. ProBNP 6963. Hemoglobin and hematocrit are 12 and 37 and white count 10,800. Arterial blood gas on 12/21/2017 revealed a pH of 7.41, pCO2 of 45 and pO2 of 96.5 with a bicarbonate at 27. This was on 2 liters. MEDICAL IMAGING STUDIES: On admission, chest x-ray revealed some blunting of the costophrenic angle bilaterally. There is a pacemaker battery pack in the left upper chest wall. No evidence of pneumothorax, significant effusions, mass effect. ASSESSMENT: 1. Exacerbation of chronic obstructive pulmonary disease. 2. Chronic hypoxemic respiratory failure. 3. History of transient ischemic attack/cerebrovascular accident. 4. Hard of hearing. 5. Chronic atrial fibrillation. RECOMMENDATIONS: We will modify her DuoNebs aerosol treatments. I did advise the patient to work a little bit more on her incentive spirometry, preferably [address] [place] [address] CONSULTATION Name: JACKIE TRAN Room: [address] IN .Andrew.#: [id number] Admission: 01/01/18 Attend Phys: Padilla Gonzales Discharge: Date of : 30 Report #: [id number] about every 2 hours. She is on steroids and adequate bronchodilator therapy, continue to monitor over the next 24 hours. Her O2 requirements can be tapered during her hospitalization. Physical therapy and occupational therapy starts to need working with the patient as well. <ELECTRONICALLY SIGNED> By: Gayathri Goodwin MD 01/05/18 0749 0726 [id number] Calderón MD /naya
[2018-01-05 08:00] VITALS: BP 143/71
[2018-01-05 11:37] VITALS: BP 136/70
[2018-01-05 15:20] VITALS: BP 141/75
[2018-01-05 20:50] VITALS: BP 154/89
[2018-01-06 04:00] VITALS: BP 127/60
[2018-01-06 05:02] LABS: HEMATOCRIT 36.1 % (37.0-47.0); HEMOGLOBIN 12.1 gm/dL (12.0-15.0); MCH 31.8 pg (26.0-34.0); MCHC 33.5 g/dL (28.0-37.0); MCV 94.9 fL (80.0-100.0); MPV 8.4 fl. (7.2-11.1); NUCLEATED RBCS 0 /100WBC; PLATELET COUNT* 185 thou/uL (150-400); RDW-CV 15.2 % (10.5-14.5); WBC 11.4 thou/uL (4.0-11.0)
[2018-01-06 05:38] LABS: ALBUMIN 2.9 g/dL (3.4-5.0); CREATININE 1.7 mg/dL (0.6-1.3); POTASSIUM 3.7 mmol/L (3.5-5.1); TOTAL BILIRUBIN 0.4 mg/dL (<0.1-1.0)
[2018-01-06 05:58] LABS: ABSOLUTE LYMPHOCYTES 0.6 thou/uL (0.8-5.3); ABSOLUTE MONOCYTES 0.2 thou/uL (0.0-1.2); ABSOLUTE NEUTROPHILS 10.6 thou/uL (1.6-8.1); PLATELET ESTIMATE ADEQUATE
[2018-01-06 05:59] LABS: ANISOCYTOSIS 1+; HYPOCHROMASIA Occasional; POIKILOCYTOSIS 1+; TARGET CELLS Occasional
[2018-01-06 08:00] VITALS: BP 143/70
[2018-01-06 11:41] VITALS: BP 125/68
[2018-01-06 15:38] VITALS: BP 120/81
[2018-01-06 20:03] VITALS: BP 152/78
[2018-01-06 23:25] VITALS: BP 130/69
[2018-01-07 03:40] VITALS: BP 136/61
[2018-01-07 05:30] LABS: ABSOLUTE LYMPHOCYTES 0.3 thou/uL (0.8-5.3); ABSOLUTE MONOCYTES 0.8 thou/uL (0.0-1.2); ABSOLUTE NEUTROPHILS 11.4 thou/uL (1.6-8.1); BASOPHILS 0.1 %; HEMATOCRIT 35.6 % (37.0-47.0); HEMOGLOBIN 11.8 gm/dL (12.0-15.0); LYMPHOCYTES 2.3 %; MCH 31.6 pg (26.0-34.0); MCHC 33.1 g/dL (28.0-37.0); MCV 95.6 fL (80.0-100.0); MONOCYTES 6.2 %; MPV 8.1 fl. (7.2-11.1); NUCLEATED RBCS 0 /100WBC; PLATELET COUNT* 181 thou/uL (150-400); POLYS 91.4 %; RBC 3.72 mil/uL (4.20-5.00); RDW-CV 15.8 % (10.5-14.5); WBC 12.4 thou/uL (4.0-11.0)
[2018-01-07 06:02] LABS: ALBUMIN 2.9 g/dL (3.4-5.0); CALCIUM 8.3 mg/dL (8.5-10.1); CREATININE 1.5 mg/dL (0.6-1.3); POTASSIUM 4.1 mmol/L (3.5-5.1); TOTAL BILIRUBIN 0.4 mg/dL (<0.1-1.0); TOTAL PROTEIN 5.7 g/dL (6.4-8.2)
[2018-01-07 07:59] VITALS: BP 153/80
[2018-01-07 11:30] VITALS: BP 146/71
[2018-01-07] MEDS ORDERED: CEFDINIR250 MG/5 M PO (13:42)
[2018-01-07 13:43] VITALS: BP 146/71
== END 2018-01-07 16:48 | DRG 177 ==
LOC: M.ERS 15:29 → M.2W 16:42 → M.TBA-ER 16:42 → M.2W 17:30
PROVIDERS: Emergency Medicine; Family Medicine; Internal Medicine; ADMIT Internal Medicine
DX: J15.6 Pneumonia due to other Gram-negative bacteria (principal); I50.33 Acute on chronic diastolic (congestive) heart failure; J96.21 Acute and chronic respiratory failure with hypoxia; J44.1 Chronic obstructive pulmonary disease with (acute) exacerbation; I13.0 Hypertensive heart and chronic kidney disease with heart failure and stage 1 through stage 4 chronic kidney disease, or unspecified chronic kidney disease; R65.10 Systemic inflammatory response syndrome (SIRS) of non-infectious origin without acute organ dysfunction; G31.84 Mild cognitive impairment of uncertain or unknown etiology; I25.10 Atherosclerotic heart disease of native coronary artery without angina pectoris; J15.9 Unspecified bacterial pneumonia; E78.00 Pure hypercholesterolemia, unspecified; N18.3 Chronic kidney disease, stage 3 (moderate); K21.9 Gastro-esophageal reflux disease without esophagitis; I48.2 Chronic atrial fibrillation; H91.90 Unspecified hearing loss, unspecified ear; I69.311 Memory deficit following cerebral infarction; I25.2 Old myocardial infarction; Z95.5 Presence of coronary angioplasty implant and graft; Z95.0 Presence of cardiac pacemaker; Z87.891 Personal history of nicotine dependence; Z79.01 Long term (current) use of anticoagulants; Z79.82 Long term (current) use of aspirin; Z79.899 Other long term (current) drug therapy

== ENCOUNTER 2018-01-27 08:42 | Observation (INO) | payer OTHER ==
[~2018-01-27] VITALS: Ht 157.5 cm; Wt 60.8 kg
[~2018-01-27 08:42] MED LIST changes: +BIOFREEZE118 ML TOP; +CEFDINIR250 MG/5 M PO; +DOXYCYCLINE 10100 MG; +DUONEB 2.5-0.5 M3 ML INH; +GUAIFENESIN ER600 MG PO; +HYDROXYZINE HCL25 M1 PO; +LOPERAMIDE 2 MG2 M1 PO; +MILK OF MA2400 MG/10 PO; +OCUVITE LUTEIN1 EAC1 PO; +PREDNISONE 10 M10 MG PO; +QVAR REDIHALE10.6 G1 INH
[2018-01-27 08:47] VITALS: BP 120/62
[2018-01-27] MEDS ORDERED: ACIDOPHILUS1 EAC3 PO (09:05)
[2018-01-27] MEDS ORDERED: MINOCYCLINE HC100 M2 PO (09:06)
[2018-01-27 09:37] LABS: HEMOGLOBIN 11.4 gm/dL (12.0-15.0); MPV 8.5 fl. (7.2-11.1)
[2018-01-27 09:40] LABS: HEMATOCRIT 34.8 % (37.0-47.0); MCH 31.6 pg (26.0-34.0); MCHC 32.8 g/dL (28.0-37.0); MCV 96.6 fL (80.0-100.0); NUCLEATED RBCS 0 /100WBC; PLATELET COUNT* 228 thou/uL (150-400); RDW-CV 16.4 % (10.5-14.5); WBC 7.4 thou/uL (4.0-11.0)
[2018-01-27 09:49] LABS: ANION GAP 7 mmol/L (7-16); BUN 34 mg/dL (7-18); CALCIUM 8.7 mg/dL (8.5-10.1); CHLORIDE 104 mmol/L (98-107); CO2 27 mmol/L (21-32); CREATININE 1.5 mg/dL (0.6-1.3); GLUCOSE 131 mg/dL (70-99); POTASSIUM 4.5 mmol/L (3.5-5.1); SODIUM 138 mmol/L (136-145)
[2018-01-27 09:58] LABS: BE 0.3 mmol/L (-2 to +3); HCO3 25.2 mmol/L (22.0-26.0); PCO2 41.6 mmHg (35.0-45.0); PO2 86.3 mmHg (75.0-100.0)
[2018-01-27 09:59] LABS: ALBUMIN 2.9 g/dL (3.4-5.0); ALKALINE PHOSPHATASE 84 U/L (46-116); MAGNESIUM 2.2 mg/dL (1.8-2.4); NT-PRO BRAIN NAT PEPTIDE 2944 pg/mL (<300); SGOT 21 U/L (15-37); SGPT 27 U/L (30-65); TOTAL BILIRUBIN 0.3 mg/dL (<0.1-1.0); TOTAL PROTEIN 6.7 g/dL (6.4-8.2); TROPONIN-I LEVEL <0.06 ng/mL (<0.06)
--- NOTE | 2018-01-27 10:02 | EKG ---
[place] [address] ELECTROCARDIOGRAM REPORT Name: JACKIE TRAN Room: [facility]#: [id number] Admission: 01/27/18 Attend Phys: Discharge: Date of : 30 Report #: [id number] THIS REPORT FOR: //name// [facility] ED Test Date: 2018-01-27 Test Time: 08:58:52 Pat Name: JACKIE TRAN Department: Room: Gender: F Pressfitter: Vamshi CROOKS : 1930 Requested By: Afsaneh Doherty Order Number: [id number] MD: Neto Cochran Measurements Intervals [place] Rate: 77 P: [place]: QRS: 28 QRSD: 116 T: 47 QT: 395 QTc: 448 Interpretive Statements ventricular-paced complexes atrial fibrillation No further rhythm analysis attempted due to paced rhythm Compared to ECG 01/01/2018 15:39:02 ventricular paced beats now noted Electronically Signed On 01-27-2018 10:02:42 CDT by Neto Cochran [email or web address] <ELECTRONICALLY SIGNED> By: Neto Cochran MD, [facility] 01/27/18 1002 7 Neto Cochran MD, [facility] /EPI
[2018-01-27 10:05] LABS: ABSOLUTE EOSINOPHILS 0.1 thou/uL (0.0-0.7); ABSOLUTE LYMPHOCYTES 1.3 thou/uL (0.8-5.3); ABSOLUTE MONOCYTES 0.4 thou/uL (0.0-1.2); ABSOLUTE NEUTROPHILS 5.6 thou/uL (1.6-8.1); METAMYELOCYTES 2 %; PLATELET ESTIMATE ADEQUATE
[2018-01-27 10:22] LABS: URINE BILIRUBIN NEGATIVE (Negative); URINE BLOOD NEGATIVE (Negative); URINE CLARITY CLEAR; URINE COLOR YELLOW; URINE GLUCOSE-RANDOM NEGATIVE (Negative); URINE KETONES NEGATIVE (Negative); URINE LEUKOCYTES-REFLEX NEGATIVE (Negative); URINE NITRITE-REFLEX NEGATIVE (Negative); URINE PROTEIN NEGATIVE (Negative); URINE UROBILINOGEN 0.2 E.U./dl (0.2-1.0)
--- NOTE | 2018-01-27 11:26 | NUR ---
CALLED RN FOR REPORT, ROOM # RECEIVED AT 1058, TOLD THE ROOM WAS READY AND NO BED AVAILABLE. COMMERCIAL LINES ACCOUNT ASSISTANT NOTIFIED.
[2018-01-27 11:46] VITALS: BP 136/63
[2018-01-27 12:30] VITALS: BP 135/68
[2018-01-27 16:04] VITALS: BP 140/62
--- NOTE | 2018-01-27 16:35 | NUR ---
PATEINT ADM TO FLOOR AT 1230. REPORT TAKEN FROM BETTY. PATIENT A&OX4, ON 2L O2 VIA NC. IV RIGHT HAND FLUIDS INFUSSING. UP WITH ASSISTX1 WITH WALKER AND GIATBELT. SOA WITH EXERCTION. NO C/O PAIN/N/V. CAN BE ANXIOUS AT TIMES. ADM ASSESMENT COMPLETED AND DOCUMENTED. NO OTHER CONCERNS AT THIS TIME. APPROPRIATE AND COOPORATIVE WITH CARE.
[2018-01-27 19:42] VITALS: BP 163/55
[2018-01-27 23:30] VITALS: BP 124/56
[2018-01-28 03:53] VITALS: BP 132/84
--- NOTE | 2018-01-28 05:57 | NUR ---
ASSESSMENT COMPLETE. PT SLEPT MOST OF THE NIGHT WITHOUT ANY CONCERNS. PT UP TO BATHROOM 3 TIMES DURING THE NIGHT. PT IS ON 1L PER NC WITH [place] SATS. PT SOA WITH EXERTION. PT DENIES PAIN. PT ON TELE MONITOR. PT IS FALL RISK, BED ALARM ON. PT UP ONE ASSIST WITH WALKER AND GAIT BELT. SEE ASSESSMENT AND VITALS FOR OTHER DETAILS. CALL LIGHT WITHIN REACH, WILL CONTINUE PLAN OF CARE
[2018-01-28] MEDS ORDERED: DUONEB 2.5-0.5 M3 ML INH (07:29)
[2018-01-28 08:00] VITALS: BP 142/68
[2018-01-28 08:21] VITALS: BP 132/84
[2018-01-28] MEDS ORDERED: XANAX 0.5 MG0.5 MG PO (08:42)
--- NOTE | 2018-01-28 11:13 | NUR ---
BRYANNA met with pt and pt dtr to discuss dc planning. Pt to dc home today with Palliative Care; pt/family preference for [facility]. SW spoke with [facility] intake at [facility] and faxed info and orders. Pt dtr mentioned need for hospital bed. BRYANNA called [facility] who does not have any hospital beds in stock today, BRYANNA messaged with [facility] to check on possibly receiving hospital bed order; to call SW back about order. Pt dtr discussed pt already having oxygen at night and a nebulizer; pt family not sure of company name. SW/CM to continue to follow to assist with finalizing safe dc plan.
[2018-01-28 11:25] VITALS: BP 107/55
--- NOTE | 2018-01-28 12:00 | NUR ---
PT.SLEEPING. SPOKE WITH DAUGHTER,NANDO,AT BEDSIDE. SHE SAID SHE AND HER SISTERS HAVE BEEN PROVIDING 24 HR CARE AT HOME. THEY ALTERNATE DAYS AND NIGHTS. PT.'S SON LIVES WITH HER BUT IS NOT COMFORTABLE DOING PERSONAL HYGEINE,ETC FOR PT. PT.HAS A WALKER AND HOME O2. SHE NORMALLY JUST WEARS THE O2 AT NIGHT. TRIED SEVERAL OTHER DME CO'S FOR HOSPITAL BED. THEY WERE OUT OF NETWORK FOR HER INSURANCE. DISCUSSED WITH NANDO. SHE SAID TO GO AHEAD AND ORDER FROM [facility]. THEY WILL JUST HAVE HER MOM SLEEP IN HER RECLINER FOR 2 NIGHTS. PT.SLEEPS THERE SOMETIMES ANYWAY. SPOKE WITH [facility]. SHE FAXED ORDER. SHE ALSO WAS WORKING ON GETTING PT.A TRILOGY THAT HAD BEEN ORDERED WHEN PT.WAS AT THE [facility]. SHE ALSO FAXED ORDER FOR TRILOGY TO . SIGNED BOTH AND THESE WERE FAXED BACK TO [facility]. PT.CURRENTLY ON SERVICE WITH [facility] FOR HOME HEALTH. NOTIFIED [facility] AND THEY WILL RESUME SERIVCE TOMORROW. [facility] HERE AND PT.SIGNED ON WITH HER. NANDO SAID SHE WILL BE DRIVING PT.HOME IN PRIVATE CAR. DELBERT RAE INFORMED OF ALL OF THE ABOVE.
--- NOTE | 2018-01-28 17:28 | NUR ---
PATIENT A&OX4, ROOM AIR, IV RIGHT HAND SALINE LOCK. IV DISCONTINUED, CATHETER FULLY INTACT. UP WITH ASSISTX1 WITH WALKER AND GIATBELT, STEADY GAIT. NO C/O PAIN/N/V. PATIENT DISCHARGED TODAY. REVIEWED DISCHARGE PAPERWORK WITH PATIENT, WHILE DAUGHTER AT BEDSIDE. ALL QUESTIONS AND CONCERNS ANSWERED, NO FURTHER QUESTIONS AT THIS TIME. APPROPRIATE AND COOPORATIVE WITH CARE. PATIENT LEFT UNIT AT 1550 VIA W/C WITH NURSING STAFF AND LEANDRAAGHTER. ALL BELONGINGS TAKEN WITH PATIENT, NOTHING LEFT BEHIND.
== END 2018-01-28 15:50 | disposition home health service (06) ==
LOC: M.ERS 08:42 → M.3W 10:36 → M.TBA-ER 10:36 → M.3W 11:58
PROVIDERS: Personal Emergency Response Attendant; ADMIT Internal Medicine
DX: R06.02 Shortness of breath (principal); J91.8 Pleural effusion in other conditions classified elsewhere; J18.9 Pneumonia, unspecified organism; I13.0 Hypertensive heart and chronic kidney disease with heart failure and stage 1 through stage 4 chronic kidney disease, or unspecified chronic kidney disease; I50.22 Chronic systolic (congestive) heart failure; N18.3 Chronic kidney disease, stage 3 (moderate); I48.91 Unspecified atrial fibrillation; I25.10 Atherosclerotic heart disease of native coronary artery without angina pectoris; I27.20 Pulmonary hypertension, unspecified; R53.81 Other malaise; F41.0 Panic disorder [episodic paroxysmal anxiety]; I25.2 Old myocardial infarction; J44.9 Chronic obstructive pulmonary disease, unspecified; E78.00 Pure hypercholesterolemia, unspecified; K21.9 Gastro-esophageal reflux disease without esophagitis; I69.311 Memory deficit following cerebral infarction; J98.11 Atelectasis; Z98.890 Other specified postprocedural states; Z95.0 Presence of cardiac pacemaker; Z86.73 Personal history of transient ischemic attack (TIA), and cerebral infarction without residual deficits; Z87.891 Personal history of nicotine dependence

== ENCOUNTER 2018-02-04 09:34 | Inpatient (IN) | payer OTHER ==
[~2018-02-04] VITALS: Ht 157.5 cm; Wt 58.5 kg
[~2018-02-04 09:34] MED LIST changes: +ACIDOPHILUS1 EAC3 PO; +MINOCYCLINE HC100 M2 PO; +XANAX 0.5 MG0.5 MG PO
[2018-02-04] MEDS ORDERED: MYRBETRIQ25 MG PO (09:41)
[2018-02-04 09:42] VITALS: BP 122/90
[2018-02-04 10:16] LABS: URINE BILIRUBIN NEGATIVE (Negative); URINE BLOOD NEGATIVE (Negative); URINE CLARITY CLEAR; URINE COLOR YELLOW; URINE GLUCOSE-RANDOM NEGATIVE (Negative); URINE KETONES NEGATIVE (Negative); URINE LEUKOCYTES-REFLEX NEGATIVE (Negative); URINE NITRITE-REFLEX NEGATIVE (Negative); URINE PROTEIN NEGATIVE (Negative); URINE SPECIFIC GRAVITY 1.015 (1.005-1.030); URINE UROBILINOGEN 0.2 E.U./dl (0.2-1.0)
[2018-02-04 10:18] LABS: HEMATOCRIT 37.1 % (37.0-47.0); HEMOGLOBIN 12.3 gm/dL (12.0-15.0); MCH 31.4 pg (26.0-34.0); MCHC 33.2 g/dL (28.0-37.0); MCV 94.5 fL (80.0-100.0); MPV 8.6 fl. (7.2-11.1); NUCLEATED RBCS 0 /100WBC; PLATELET COUNT* 249 thou/uL (150-400); RBC 3.93 mil/uL (4.20-5.00); RDW-CV 16.8 % (10.5-14.5); WBC 9.5 thou/uL (4.0-11.0)
[2018-02-04 10:19] LABS: ANION GAP 10 mmol/L (7-16); BUN 28 mg/dL (7-18); CALCIUM 8.4 mg/dL (8.5-10.1); CHLORIDE 102 mmol/L (98-107); CO2 28 mmol/L (21-32); CREATININE 1.3 mg/dL (0.6-1.3); GLUCOSE 107 mg/dL (70-99); POTASSIUM 4.5 mmol/L (3.5-5.1); SODIUM 140 mmol/L (136-145)
[2018-02-04 10:22] LABS: APTT 28.1 Seconds (25.0-31.3)
[2018-02-04 10:30] LABS: ALBUMIN 3.1 g/dL (3.4-5.0); ALKALINE PHOSPHATASE 88 U/L (46-116); NT-PRO BRAIN NAT PEPTIDE 4023 pg/mL (<300); SGOT 26 U/L (15-37); SGPT 22 U/L (30-65); TOTAL BILIRUBIN 0.5 mg/dL (<0.1-1.0); TOTAL PROTEIN 6.8 g/dL (6.4-8.2); TROPONIN-I LEVEL <0.06 ng/mL (<0.06)
[2018-02-04 11:07] LABS: ABSOLUTE MONOCYTES 0.5 thou/uL (0.0-1.2); ABSOLUTE NEUTROPHILS 8.1 thou/uL (1.6-8.1)
[2018-02-04 11:11] LABS: PLATELET ESTIMATE ADEQUATE
[2018-02-04 11:12] LABS: MACROCYTES Occasional
[2018-02-04 14:00] VITALS: BP 117/65
[2018-02-04 14:15] VITALS: BP 118/49
--- NOTE | 2018-02-04 15:53 | EKG ---
[place] [address] ELECTROCARDIOGRAM REPORT Name: JACKIE TRAN Room: [address] IN [facility]#: [id number] Admission: 02/04/18 Attend Phys: Liam Myers MD Discharge: Date of : 30 Report #: [id number] THIS REPORT FOR: //name// [facility] ED Test Date: 2018-02-04 Test Time: 10:11:22 Pat Name: JACKIE TRAN Department: Room: Gender: Shipping Packer: ND : 1930 Requested By: James Pena Order Number: [id number] MD: Bart Blanca Measurements Intervals [place] Rate: 79 P: 0 SD: 52 QRS: 61 QRSD: 99 T: 66 QT: 396 QTc: 455 Interpretive Statements Ventricular-paced complexes alternates with atrial fibrillation No further rhythm analysis attempted due to paced rhythm Abnormal T, consider ischemia, lateral leads Compared to ECG 01/27/2018 08:58:[address]-t changes have occurred Electronically Signed On 02-04-2018 15:52:55 CDT by Bart Blanca [email or web address] <ELECTRONICALLY SIGNED> By: Bart Blanca MD, [facility] 02/04/18 1552 1011 1011 Bart Blanca MD, [facility] /EPI
[2018-02-04 16:00] VITALS: BP 117/59
[2018-02-04 20:39] VITALS: BP 121/66
[2018-02-05] VITALS (7 sets, daily range): BP systolic 90–140; BP diastolic 55–84
[2018-02-05 05:02] LABS: ABSOLUTE NEUTROPHILS 4.5 thou/uL (1.6-8.1); HEMOGLOBIN 12.9 gm/dL (12.0-15.0); MPV 8.2 fl. (7.2-11.1); NUCLEATED RBCS 0 /100WBC
[2018-02-05 05:03] LABS: ABSOLUTE BASOPHILS 0.1 thou/uL (0.0-0.2); ABSOLUTE LYMPHOCYTES 1.3 thou/uL (0.8-5.3); ABSOLUTE MONOCYTES 0.3 thou/uL (0.0-1.2); BASOPHILS 1.3 %; HEMATOCRIT 38.6 % (37.0-47.0); LYMPHOCYTES 20.6 %; MCH 31.5 pg (26.0-34.0); MCHC 33.3 g/dL (28.0-37.0); MCV 94.5 fL (80.0-100.0); MONOCYTES 4.3 %; PLATELET COUNT* 223 thou/uL (150-400); POLYS 73.8 %; RBC 4.09 mil/uL (4.20-5.00); RDW-CV 16.5 % (10.5-14.5); WBC 6.1 thou/uL (4.0-11.0)
[2018-02-05 05:22] LABS: CREATININE 1.7 mg/dL (0.6-1.3); POTASSIUM 4.6 mmol/L (3.5-5.1)
[2018-02-06 03:32] VITALS: BP 131/65
[2018-02-06 11:30] VITALS: BP 119/71
[2018-02-06] MEDS ORDERED: QVAR REDIHALE10.6 GM INH (13:05)
[2018-02-06] MEDS ORDERED: TUMS PO (13:06)
[2018-02-06] MEDS ORDERED: VENTOLIN HFA 1818 GM INH (13:08)
[2018-02-06] MEDS ORDERED: XANAX 0.25 MG0.25 MG PO (13:13)
== END 2018-02-06 15:28 | DRG 177 ==
LOC: M.ERS 09:34 → M.TBA-ER 12:02 → M.2W 12:02
PROVIDERS: Family Medicine; ADMIT Internal Medicine
DX: J69.0 Pneumonitis due to inhalation of food and vomit (principal); I50.33 Acute on chronic diastolic (congestive) heart failure; J96.20 Acute and chronic respiratory failure, unspecified whether with hypoxia or hypercapnia; I48.92 Unspecified atrial flutter; I13.0 Hypertensive heart and chronic kidney disease with heart failure and stage 1 through stage 4 chronic kidney disease, or unspecified chronic kidney disease; J44.1 Chronic obstructive pulmonary disease with (acute) exacerbation; I49.5 Sick sinus syndrome; E78.5 Hyperlipidemia, unspecified; I48.2 Chronic atrial fibrillation; I25.2 Old myocardial infarction; F41.9 Anxiety disorder, unspecified; F03.90 Unspecified dementia, unspecified severity, without behavioral disturbance, psychotic disturbance, mood disturbance, and anxiety; E78.00 Pure hypercholesterolemia, unspecified; N18.3 Chronic kidney disease, stage 3 (moderate); K21.9 Gastro-esophageal reflux disease without esophagitis; Z79.01 Long term (current) use of anticoagulants; Z95.0 Presence of cardiac pacemaker; Z86.73 Personal history of transient ischemic attack (TIA), and cerebral infarction without residual deficits; Z88.1 Allergy status to other antibiotic agents; Z88.8 Allergy status to other drugs, medicaments and biological substances; Z98.890 Other specified postprocedural states; Z87.891 Personal history of nicotine dependence; Z79.82 Long term (current) use of aspirin; Z79.899 Other long term (current) drug therapy

== ENCOUNTER 2018-05-23 13:26 | Inpatient (IN) | payer OTHER ==
[~2018-05-23] VITALS: Ht 167.6 cm; Wt 68.0 kg
[~2018-05-23 13:26] MED LIST changes: +MYRBETRIQ25 MG PO; +QVAR REDIHALE10.6 GM INH; +XANAX 0.25 MG0.25 MG PO
[2018-05-23 13:30] VITALS: BP 113/52
[2018-05-23] MEDS ORDERED: HYOSCYAMINE0.125 M2 PO (13:52)
[2018-05-23] MEDS ORDERED: CARDIZEM CD120 MG PO (13:52)
[2018-05-23] MEDS ORDERED: LASIX 20 MG TAB20 MG PO (13:53)
[2018-05-23 13:54] LABS: ABSOLUTE BASOPHILS 0.1 thou/uL (0.0-0.2); ABSOLUTE EOSINOPHILS 0.2 thou/uL (0.0-0.7); ABSOLUTE LYMPHOCYTES 1.1 thou/uL (0.8-5.3); ABSOLUTE MONOCYTES 0.7 thou/uL (0.0-1.2); ABSOLUTE NEUTROPHILS 8.6 thou/uL (1.6-8.1); BASOPHILS 0.6 %; EOSINOPHILS 1.8 %; HEMATOCRIT 37.9 % (37.0-47.0); HEMOGLOBIN 12.5 gm/dL (12.0-15.0); LYMPHOCYTES 10.6 %; MCH 30.3 pg (26.0-34.0); MCHC 32.9 g/dL (28.0-37.0); MONOCYTES 6.2 %; MPV 8.5 fl. (7.2-11.1); NUCLEATED RBCS 0 /100WBC; PLATELET COUNT* 194 thou/uL (150-400); POLYS 80.8 %; RBC 4.12 mil/uL (4.20-5.00); RDW-CV 18.5 % (10.5-14.5); WBC 10.6 thou/uL (4.0-11.0)
[2018-05-23] MEDS ORDERED: TYLENOL EXTRA500 MG PO (13:54)
[2018-05-23 14:00] LABS: ANION GAP 6 mmol/L (7-16); BUN 19 mg/dL (7-18); CALCIUM 8.4 mg/dL (8.5-10.1); CHLORIDE 101 mmol/L (98-107); CO2 32 mmol/L (21-32); CREATININE 1.2 mg/dL (0.6-1.3); GLUCOSE 132 mg/dL (70-99); POTASSIUM 3.7 mmol/L (3.5-5.1); SODIUM 139 mmol/L (136-145)
[2018-05-23 14:01] LABS: APTT 26.4 Seconds (25.0-31.3)
[2018-05-23 14:15] LABS: ALBUMIN 3.1 g/dL (3.4-5.0); ALKALINE PHOSPHATASE 108 U/L (46-116); SGOT 19 U/L (15-37); SGPT 22 U/L (30-65); TOTAL BILIRUBIN 0.4 mg/dL (<0.1-1.0); TOTAL PROTEIN 6.9 g/dL (6.4-8.2); TROPONIN-I LEVEL <0.06 ng/mL (<0.06)
--- NOTE | 2018-05-23 15:13 | NUR ---
PT DAUGHTERS STATES LAST MEAL WAS AT 1215.
[2018-05-23 15:37] VITALS: BP 139/68
--- NOTE | 2018-05-23 15:40 | NUR ---
Received telephone call from [facility]. Pt is currently on service with [facility] for CHF. Pt is a resident at [facility], fell and broke her hip. Will remain available to assist as needed.
[2018-05-23 15:58] VITALS: BP 127/66
--- NOTE | 2018-05-23 16:35 | NUR ---
PATIENT ARRIVED TO UNIT AT 1539. ALERT TO SELF, PLEASANTLY CONFUSED BUT NOT IMPULSIVE. VSS ON ROOM AIR. NO COMPLAINTS OF PAIN, NAUSEA, OR SOA AT TIME OF ASSESSMENT. ADMISSION HISTORY AND ASSESSMENT COMPLETED AND CHARTED. MANY SUPPORTIVE FAMILY MEMBERS WITH PATIENT UPON ARRIVAL. JOHNSON IN PLACE, PATENT AND DRAINING INDEPENDENTLY WITH LIGHT YELLOW URINE. WILL START A PERIPHERAL LINE AND START FLUIDS INFUSING ORDERED. CALL LIGHT PLACED IN REACH AND NURSING WILL CONTINUE TO MONITOR.
--- NOTE | 2018-05-23 18:29 | NUR ---
CALLED [facility] TO CONFIRM IF PATIENT HAD BEEN RECIEVING ELIQUIS RECENTLY AND CONFORMED LAST DATE TAKEN WAS FEBRUARY 20 2018.
[2018-05-24] VITALS: BP 114/64
--- NOTE | 2018-05-24 03:34 | NUR ---
PATIENT TRANSFERRED TO TELEMETRY. VSS AND PATIENT PLACE ON 3L 02 VIA NASAL CANNULA D/T DECREASED SATS. FAMILY WITH PATIENT. REPORT GIVEN TO TELEMETRY NURSE. NURSING TO CONTINUE MONITORING.
[2018-05-24 04:00] VITALS: BP 125/59; BP 87/46
[2018-05-24 04:40] LABS: HEMATOCRIT 32.6 % (37.0-47.0); HEMOGLOBIN 10.7 gm/dL (12.0-15.0); MCH 30.6 pg (26.0-34.0); MCHC 32.9 g/dL (28.0-37.0); MCV 93.1 fL (80.0-100.0); MPV 8.5 fl. (7.2-11.1); RBC 3.5 mil/uL (4.20-5.00); WBC 8.9 thou/uL (4.0-11.0)
--- NOTE | 2018-05-24 04:41 | NUR ---
ASSUMED CARE OF PT AFTER REPORT AT 1930. PT ORIENTED TO SELF AND SITUATION ONLY, FORGETFUL AND CONFUSED AT TIMES.REORIENTATION AND REDIRECTION GIVEN. VSS. PHYSICAL ASSESSMENT COMLPETED AND CHARTED. PT ON O2 AT 3L WITH 97% O2 SAT. PT TRACING AFIB RVR ON TELE.STARTED CARDIZEM DRIP AT 5 MG/HR BUT STOPPED WHEN HEART RATE GOES DOWN TO 38 BEATS. PT ON NPO FOR POSSIBLE SURGERY TODAY. PT MUMBLING WHILE ASLEEP. PT WITH FAMILY AT BEDSIDE. HOURLY ROUNDING OBSERVED. CALL LIGHT WITHIN REACH.BED IN LOW POSITION. BED ALARM ON.
[2018-05-24 04:59] LABS: ANION GAP 5 mmol/L (7-16); BUN 19 mg/dL (7-18); CALCIUM 8.1 mg/dL (8.5-10.1); CHLORIDE 103 mmol/L (98-107); CO2 31 mmol/L (21-32); GLUCOSE 109 mg/dL (70-99); MAGNESIUM 2.3 mg/dL (1.8-2.4); POTASSIUM 3.7 mmol/L (3.5-5.1); SODIUM 139 mmol/L (136-145); TROPONIN-I LEVEL <0.06 ng/mL (<0.06)
[2018-05-24 08:00] VITALS: BP 135/69
[2018-05-24 11:30] VITALS: BP 104/45
--- NOTE | 2018-05-24 12:17 | NUR ---
ASSUMED PT CARE AT 0730, FULL ASSESMENT DONE CHARTED. VSS, AFIB ON THE MONITOR, RATE IN THE 80-90'S. DORON ZABALA. PT A/O X2-3, FORGETFUL. PT DENIES PAIN AT SHIFT CHANGE THIS AM, BUT DID C/O RIGHT HIP PAIN THIS AM, TYLENOL GIVEN. PT SLEEPING. PLAN FOR PT TO TURN Q2 HR, FALL PRECAUTIONS IN PLACE. CARDIAC CLEARANCE FOR SURGERY GIVEN, FAMILY UPDATED. WILL CONTINUE WITH PLAN OF CARE.
--- NOTE | 2018-05-24 12:54 | EKG ---
[place] [address] ELECTROCARDIOGRAM REPORT Name: JACKIE TRAN Room: [address] IN [facility].#: [id number] Admission: 05/23/18 Attend Phys: Severino Hart, Discharge: Date of : 30 Report #: [id number] THIS REPORT FOR: //name// [facility] ED Test Date: 2018-05-23 Test Time: 13:49:51 Pat Name: JACKIE TRAN Department: Room: [facility] Gender: F Resaw Operator: ANKIT : 1930 Requested By: James Pena Order Number: [id number] MD: Sean Almaraz Measurements Intervals [place] Rate: 135 P: [place]: QRS: 33 QRSD: 151 T: 266 QT: 361 QTc: 542 Interpretive Statements Afib/flut and V-paced complexes No further rhythm analysis attempted due to paced rhythm Nonspecific intraventricular conduction delay Borderline repol abnrm, anterolateral leads Compared to ECG 02/04/2018 10:11:22 Intraventricular conduction delay now present T-wave abnormality no longer present Possible ischemia no longer present Electronically Signed On 05-24-2018 12:54:18 CDT by Sean Almaraz [email or web address] <ELECTRONICALLY SIGNED> By: Sean Almaraz MD, [facility] 05/24/18 1254 1349 1349 Sean Almaraz MD, [facility] /EPI
--- NOTE | 2018-05-24 12:56 | EKG ---
[place] [address] ELECTROCARDIOGRAM REPORT Name: JACKIE TRAN Room: [address] IN M.R.#: [id number] Admission: 05/23/18 Attend Phys: Severino Hart, Discharge: Date of : 30 Report #: [id number] THIS REPORT FOR: //name// [facility] Test Date: 2018-05-23 Test Time: 21:42:15 Pat Name: JACKIE TRAN Department: Room: [address] Gender: F Crane Follower: DIANE : 1930 Requested By: Severino Hart Order Number: [id number] Reading MD: Sean Almaraz Measurements Intervals [place] Rate: 128 P: [place]: QRS: 54 QRSD: 91 T: QT: 396 QTc: 578 Interpretive Statements Atrial fibrillation Repolarization abnormality, prob rate related Prolonged QT interval Compared to ECG 02/04/2018 10:11:22 Early repolarization now present Prolonged QT interval now present Ventricular-paced complex(es) or rhythm no longer present T-wave abnormality no longer present Possible ischemia no longer present Electronically Signed On 05-24-2018 12:56:17 CDT by Sean Almaraz [email or web address] <ELECTRONICALLY SIGNED> By: Sean Almaraz MD, [facility] 05/24/18 1256 41 41 Sean Almaraz MD, [facility] /EPI
[2018-05-24 15:44] VITALS: BP 128/59
[2018-05-24 17:20] LABS: URINE BILIRUBIN NEGATIVE (Negative); URINE BLOOD TRACE (Negative); URINE CLARITY CLEAR; URINE COLOR YELLOW; URINE GLUCOSE-RANDOM NEGATIVE (Negative); URINE KETONES NEGATIVE (Negative); URINE PROTEIN TRACE (Negative); URINE UROBILINOGEN 0.2 E.U./dl (0.2-1.0)
[2018-05-24 17:33] LABS: URINE LEUKOCYTES-REFLEX 2+ (Negative); URINE NITRITE-REFLEX POSITIVE (Negative)
[2018-05-24 17:39] LABS: SQUAMOUS 0-3 Few /LPF (0-3)
[2018-05-24 17:40] LABS: BACTERIA-REFLEX >30 Many /HPF (None Seen); CASTS None Seen /LPF (None Seen); CRYSTALS None Seen /LPF (None Seen); URINE RBC 0-2 Rare /HPF (0-2); URINE WBC-REFLEX >25 Many /HPF (0-5)
[2018-05-24 20:00] VITALS: BP 115/54
--- NOTE | 2018-05-24 20:02 | NUR ---
pt c/o pain through out the afternoon, pain meds given per oct. Cardiology cleared pt for surgery. planned surgery for 0800 on 05/25, family updated. pts vss, afib on the monitor in the 80's-90's, continues to be off the iv cardizem, taking po well. report given to night payton Peck.
[2018-05-25] VITALS (8 sets, daily range): BP systolic 112–131; BP diastolic 49–68
--- NOTE | 2018-05-25 04:57 | NUR ---
ASSUMED PT CARE AT 1930. ASSESSMENT COMPLETED CHARTED. PT IN BED AT THIS TIME RAMBLING TO DAUGHTER AT BEDSIDE. ABLE TO MAKE SOME NEEDS KNOWN. REFUSES PAIN MEDICATION AT THIS TIME. PT HAS BEEN NPO SINCE MIDNIGHT, FAMILY SUPPORTIVE OF DIET ORDER FOR SURGERY. PT HAS BEEN A Q2HR TURN, C/O PAIN IN RIGHT HIP DURING TURNS BUT STATES IT FEELS FINE WHEN LAYING STILL. WILL CONTINUE TO MONITOR.
--- NOTE | 2018-05-25 14:18 | NUR ---
CM spoke with dtr outside of room. Pt/dtr known to this CM from previous hospital stay. Pt is a LTC resident at [facility], spoke with Michelle at [facility], they are able to accept Pt back at co. Pt is current with [facility]. Pt uses a wc for mobility. Following for disposition.
--- NOTE | 2018-05-25 15:30 | NUR ---
ASSUMED PT CARE AT 0730, PT LEFT FOR SURGERY AT THIS TIME. SHE RETURNED FROM SURGERY AT APPROX 1030, PT DROWSY, SLEEPING, DENIES PAIN, BARELY OPENING EYES UNLESS PROMPTED. VSS, PT PLACED ON CONTINUOUS PULSE OX, TELE MONITOR IN PLACE TRACING AFIB ON THE MONITOR. PTS FAMILY AT BEDSIDE, UPDATED ON PLAN OF CARE. PT GIVEN MEDS WITH SIPS OF WATER. HAS NOT EATEN YET. TURNED Q2 HR, JOHNSON IN PLACE DRAINING YELLOW URINE. FALL PRECAUTIONS IN PLACE. WILL CONTINUE WITH PLAN OF CARE
[2018-05-26] VITALS: BP 138/74
--- NOTE | 2018-05-26 02:10 | NUR ---
ASSUMED CARE OF PATIENT AT 1900. VSS, AFEBRILE. STATES PAIN IS WELL CONTROLLED. FAMILY AT BEDSIDE. POC DISCUSSED, ALL QUESTIONS ANSWERED. PATIENT VERY ANXIOUS ABOUT HAVING A BOWEL MOVEMENT. ALL MEDICATIONS GIVEN WELL PRUNE JUICE. CALLS OUT FREQUENTLY, WANTS TO JUST TALK. IS VERY FORGETFUL AT TIMES. NO BOWEL MOVEMENT THIS SHIFT, WILL CONTINUE TO MONITOR. RIGHT HIP DRESSING C/D/I.
[2018-05-26 04:00] VITALS: BP 124/55
[2018-05-26 05:41] LABS: HEMATOCRIT 31.8 % (37.0-47.0); HEMOGLOBIN 10.3 gm/dL (12.0-15.0)
[2018-05-26 07:57] VITALS: BP 118/57
[2018-05-26 08:00] VITALS: BP 118/71
[2018-05-26 12:54] VITALS: BP 110/48
--- NOTE | 2018-05-26 15:55 | NUR ---
TELEMTRY DISCONTINUED. ROOM OBTAINED 111 ON JOINT AND SPPINE. REPORT CALLED AND PATINET TRANSFERRED VIA BED TO ROOM 111. PATINETS BELONGINGS GATHERED AND TAEN BY DAUGHTERS TO ROOM. HOURLY ROUNDING COMPLLETED FOR PATINET SAFETY AND PATINET WAS PROGRESSING TOWARDS GOALS.
--- NOTE | 2018-05-26 15:58 | NUR ---
PT TRANSFERRED TO THIS UNIT. PT IS ALERT AND ORIENTED X2. 2 LITERS O2 BY NASAL CANNULA. PULSES 2+ ALL EXTREMITIES. DRESSING TO RT HIP DRY AND INTACT. PT DENIES ANY PAIN AT THIS TIME. I AGREE WITH MORNING SHIFT ASSESSMENT. CALL LIGHT IN REACH. BED ALARM ON. WILL CONTINUE TO MONITOR.
--- NOTE | 2018-05-26 16:57 | NUR ---
pt remained alert and oriented x2 this shift. pt is on 2 liters o2 by nasal cannula. pt denies any pain at this time. pt has not ambulated this shift since transferring, stated in report they are x1 assist. pt requested xanax and melatonin before bedtime tonight. potential for dc tomorrow. call light in reach. bed alarm on. will continue to monitor.
--- NOTE | 2018-05-26 18:14 | NUR ---
NURSING DOCUMENTATION BY CARMEN Will RN REVIEWED
[2018-05-26 20:40] VITALS: BP 106/51
[2018-05-27] VITALS: BP 109/56
[2018-05-27 04:00] VITALS: BP 138/65
--- NOTE | 2018-05-27 05:48 | NUR ---
PATIENT REMAINS ALERT AND ORIENTED TO PERSON, PLACE AND TIME WITH PERIODS OF CONFUSION. IV PATENT IN THE RIGHT AC SALINE LOCKED. PAIN MANAGED WITH PO MEDICATION. DENIES NAUSEA. ASSISTED TO REPOSITION EVERY TWO HOURS. RESTING THROUGHOUT THE NIGHT WITH PERIODS OF RESTLESSNESS. HOURLY ROUNDING COMPETE. CALL LIGHT WITHIN REACH. NURSING WILL CONTINUE TO MONITOR.
[2018-05-27 08:00] VITALS: BP 112/65
[2018-05-27 08:05] VITALS: BP 112/65
[2018-05-27] MEDS ORDERED: ULTRAM 50MG TAB50 MG PO (11:38)
[2018-05-27] MEDS ORDERED: XANAX 0.25 MG0.25 MG PO (11:40)
[2018-05-27 11:50] VITALS: BP 112/65
--- NOTE | 2018-05-27 12:29 | NUR ---
SPOKE WITH DAUGHTER'S CARMELO TERRELL AND PT., AT LENGTH. THEY ARE QUESTIONING IF SHE SHOULD GO SKILLED AT [facility] OR STAY ON LTC WITH HOSPICE. PT.STATING SHE WANTS TO WALK AGAIN. PT.HAS NOT WALKED SINCE JANUARY. MEREDITH SPOKE WITH KAVEH/FAYE AND FAXED HER FACE SHEET,H&P,OP REPORT,PT/OT AND MED LIST. SHE SAID SHE CAN EASILY GET AUTH FOR PT.TO DO SKILLED AND SHE CAN STILL COME BACK TODAY. FAMILY DOES NOT NEED TO MAKE A DECISION TODAY. NOTIFIED FAMILY OF THIS. HAD MANY QUESTIONS OF WHETHER PT.WOULD MOVE TO ANOTHER ROOM, ETC. TOLD THEM GENERALLY THEY STAY IN LTC ROOM AND THEY JUST BILL DIFFERENTLY. CONCERNED ABOUT LACK OF CARE AT NIGHT. TOLD THEM TO ADDRESS THESE CONCERNS/QUESTIONS WITH STAFF. WILL WAIT FOR KAVEH TO CALL BACK AND SET UP TRANSPORTATION.
[2018-05-27] MEDS ORDERED: LITE COAT ASPI325 MG PO (12:39)
[2018-05-27] MEDS ORDERED: ASPIRIN325 PO (12:40)
[2018-05-27] MEDS ORDERED: CEFUROXIME250 MG PO (12:42)
--- NOTE | 2018-05-27 13:01 | NUR ---
I have reviewed and agree with the reassessment entered by Felicity Kaiser, student nurse.
--- NOTE | 2018-05-27 13:30 | NUR ---
SPOKE WITH DR. OLVERA REGARDING JOHNSON. ORDERS TO PULL IT PRIOR TO DC, THEN FACILITY IS TO MONITOR FOR URINARY RETENTION. FAMILY REFUSED JOHNSON REMOVAL. JOHNSON HAD BEEN IN SINCE DECEMBER. NOTIFIED FACILITY OF REFUSAL.
--- NOTE | 2018-05-27 13:36 | NUR ---
NURSING DOCUMENTATION BY CARMEN Will RN REVIEWED
--- NOTE | 2018-05-27 13:36 | NUR ---
ALSO NOTIFIED DR. OLVERA OF WHEEZING. PER DR. OLVERA WE NEED TO MAKE SURE NEBULIZER IS ORDERED FOR SNF.
--- NOTE | 2018-05-27 16:00 | NUR ---
PT INFORMATION GIVEN TO [facility]. [employer] FAXED. PT LEFT FACILITY VIA WHEELCHAIR.
--- NOTE | 2018-06-06 12:29 | CON ---
[address] [address] CONSULTATION Name: JACKIE TRAN Room: [address] IN .R.#: [id number] Admission: 05/23/18 Attend Phys: Severino Hart, Discharge: 05/27/18 Date of : 30 Report #: [id number] THIS REPORT FOR: //name// CC: Espinoza Hart DATE OF SERVICE: 05/23/2018 PRIMARY CONSTRUCTION SITE MANAGER: Anton Nelson M.D. CHIEF COMPLAINT: Fall, hip fracture, preoperative evaluation. HISTORY OF PRESENT ILLNESS: The patient is an 87-year-old female with a history of conduction abnormality, status post single chamber permanent pacemaker as well as atrial fibrillation, fell after transferring from the [facility]. She was getting out of her wheelchair and tripped and fell. She has a right femoral neck fracture. We are asked to see her in cardiovascular preoperative evaluation. From a cardiovascular standpoint, she is in atrial fibrillation with minimal ventricular pacing. She had been placed on IV Cardizem downstairs and transferred to telemetry because of heart rate management issues. Currently on IV Cardizem, her heart rates in the 70s-90s. Blood pressures are stable in the 130 systolic. She is minimally symptomatic. She denies heart racing, skipping or dizziness. She is without chest pain or pressure. She is without congestive heart failure symptoms of shortness of breath, orthopnea or PND. PAST MEDICAL HISTORY: In November of this year, she underwent placement of a single chamber Biotronik pacemaker. She has a history of normal LV systolic function with a [id number] mitral and tricuspid regurgitation. Mild pulmonary hypertension is noted. She has chronic back pain, COPD, hypertension, orthostasis. She had been anticoagulated because she has a history of prior TIA with Eliquis, but then when she was transitioned to a skilled facility and hospice, this had been discontinued and apparently, she had only been on Lasix. ALLERGIES: SHE HAS ALLERGIES TO AMOXICILLIN AND AUGMENTIN. REVIEW OF SYSTEMS: GASTROINTESTINAL: No nausea, vomiting, hematemesis or melena. GENITOURINARY: No dysuria or hematuria. NEUROLOGIC: [place] [address] CONSULTATION Name: JACKIE TRAN Room: [address]#: [id number] Admission: 05/23/18 Attend Phys: Severino Hart, Discharge: 05/27/18 Date of : 30 Report #: [id number] SKIN: No rashes. GENERAL: No complaints of pain. No fevers or chills. PULMONARY: No cough. Positive dyspnea on exertion. PSYCHIATRIC: Positive anxiety. PHYSICAL EXAMINATION: VITAL SIGNS: As noted above. GENERAL: Pleasant elderly female. She is alert, lying supine in the bed. She is in no apparent distress. HEENT: Eyes, EOMs are intact. No facial asymmetry. NECK: Supple. No jugular venous distention. CARDIOVASCULAR: Irregular. I cannot hear a murmur or rub. LUNGS: Clear to auscultation bilaterally. ABDOMEN: Soft, nontender, nondistended. EXTREMITIES: There is no peripheral edema. SKIN: Warm and dry. ECG demonstrates atrial fibrillation with a controlled ventricular response, nonspecific IVCD. Chest x-ray revealed no acute pulmonary process, linear right mid lung opacity likely submental atelectasis, a trace pleural effusion. CT of the brain demonstrates no acute intracranial process, mild supratentorial white matter suggestive of small vessel ischemic white changes. IMPRESSION: 1. Preoperative cardiovascular examination. She presents with no angina or active congestive heart failure and historically has normal LV function. She does have atrial fibrillation, which is presently persistent, but rate controlled on IV Cardizem. I would estimate her cardiovascular risk to be moderate. She has remote history of coronary artery disease, but is currently asymptomatic. 2. Coronary artery disease. We will continue with conservative medical therapy approach. 3. Atrial fibrillation, persistent. At this point in time, I would continue with IV Cardizem as she may not be taking p.o. for a while postoperatively. 4. Oral anticoagulation. In the past, she had been on low dose Eliquis and depending on what her functional capacity is postoperatively, this can be reconsidered as apparently, she does not make any transfers now at the [facility] without any assistance. She does remain a very high stroke risk with a CHADS-VASc score of 4+. 5. Valvular heart disease. She has a mild pulmonary hypertension, wmec-cy-[id number] tricuspid insufficiency and mild mitral regurgitation on her most recent echocardiogram. She does not have evidence of heart failure, but we will need to monitor her intake and output. [address] [address] CONSULTATION Name: JACKIE TRAN Room: [address] M.R.#: [id number] Admission: 05/23/18 Attend Phys: Severino Guillen Lulutamara, Discharge: 05/27/18 Date of : 30 Report #: [id number] 6. Permanent pacemaker. This was recently implanted and shows no evidence of dysfunction on telemetry. <ELECTRONICALLY SIGNED> By: Sean Almaraz MD, FACC 06/06/18 1229 [id number] [id number] Almaraz MD, FACC /nt
--- NOTE | 2018-06-20 07:40 | OP ---
[address] [address] OPERATIVE REPORT Name: JACKIE TRAN Room: [address]#: [id number] Admission: 05/23/18 Attend Phys: Severino Hart, Discharge: 05/27/18 Date of : 30 Report #: [id number] THIS REPORT FOR: //name// CC: Espinoza Hart DATE OF SERVICE: 05/25/2018 PREOPERATIVE DIAGNOSIS: Right valgus impacted femoral neck fracture. POSTOPERATIVE DIAGNOSIS: Right valgus impacted femoral neck fracture. SURGEON: Sandy Coleman DO TIP CEMENTER: Espinoza Long DO. PROCEDURE: Open reduction and internal fixation of right femoral neck fracture utilizing cannulated screws. ANESTHESIA: General as well as 20 mL of 0.25% Marcaine plain around the incision. ESTIMATED BLOOD LOSS: 10 mL. SPECIMENS: None. COMPLICATIONS: None. IMPLANTS: We used the [place] 6.5 mm partially threaded cannulated screws. ANTIBIOTICS: She received 1 gram of Ancef IV preoperatively. DISPOSITION: PACU to Med/Surg floor. CONDITION: The patient is stable. INDICATIONS FOR PROCEDURE: The patient is a very pleasant 87-year-old female whose only form of ambulation is going from her wheelchair to her bed. She was, however, trying to get out of her wheelchair the other day and she tripped and fell and landed on her right side. She did sustain a valgus impacted right femoral neck fracture. She was brought to [facility] and admitted. She had a run of atrial fibrillation with rapid ventricular response. We did wait for a Cardiology consult yesterday before proceeding with surgery. I did recommend operative fixation with cannulated screws. The benefits, risks, complications and alternatives of this procedure were discussed with the patient and her family in detail. These included, but are not limited to bleeding, [place] [address] OPERATIVE REPORT Name: KRYSTLE TRANDALIA Dixon Room: [address]#: [id number] Admission: 05/23/18 Attend Phys: Severino Hart, Discharge: 05/27/18 Date of : 30 Report #: [id number] surgical site infection, neurovascular compromise, malunion, nonunion, hardware failure, need for further surgery, continued pain, DVT, PE as well as the inherent risks of anesthesia. The patient understands these risks and is agreeable to proceed. Consent was signed in the preoperative holding area and on the chart at the time of surgery. The right lower extremity was also marked in the preoperative holding area. DESCRIPTION OF PROCEDURE: The patient was brought to the operating room and placed supine on the operating table. She was administered a general anesthetic. The right lower extremity was then sterilely prepped with chlorhexidine, scrubbed, alcohol rinsed, ChloraPrep times 2 and draped freely in the usual fashion. A timeout was performed to confirm correct patient, site of procedure. Surgical site markings were identified and all in the room were in agreement. The procedure began with localizing the lesser trochanter with C-arm fluoroscopy. Next, an incision was made from the level of lesser trochanter approximately 3-4 cm distal on the lateral aspect of the hip. The dissection was carried down through skin and subcutaneous tissue to the level of the IT band. The IT band was then incised and the lateral aspect of the femur was encountered. Next utilizing a threaded K-wire from the 6.5 mm cannulated screw system, the K-wire for the inferior screw was placed across the femoral neck into the head in an appropriate position that was confirmed with C-arm fluoroscopy. Next utilizing the guide, the anterior, superior and posterior superior K-wires were also placed in appropriate fashion getting adequate spread throughout the femoral neck and into the head. Next, the outer cortex was overdrilled for all three of these and 3 partially threaded 6.5 mm cannulated screws were placed across the fracture site of appropriate length. Again with final positioning of the screws confirmed with C-arm fluoroscopy. The K-wires were then removed and final x-rays were taken. The wound was then thoroughly irrigated with normal saline. The IT band was closed with 0 Vicryl suture in [id number] fashion. The subcutaneous tissues were closed with 2-0 Vicryl suture in simple interrupted inverted fashion. The skin reapproximated with devaughn. A sterile Mepilex dressing was applied. The patient tolerated the procedure well without complication and was transferred to PACU in stable condition. All needle and sponge counts were correct times 2. POSTOPERATIVE PLAN: The patient will return to the orthopedic or telemetry floor for routine postoperative monitoring. Once deemed stable, she will return to her snf. She may weightbear as tolerated on this right lower extremity, and I will plan to see her back in 2 weeks for staple removal and a new x-ray. <ELECTRONICALLY SIGNED> By: Sandy Coleman DO 06/20/18 0740 [id number] Ashley Coleman DO /nt
== END 2018-05-27 16:01 | DRG 481 ==
LOC: M.ERS 13:26 → M.2W 14:32 → M.TBA-ER 14:32 → M.ORTHSURG 15:39 → M.2W 23:20 → M.ORTHSURG 05-26 15:44
PROVIDERS: Family Medicine; Orthopaedic Surgery; ADMIT Family Medicine
PROC: 0QS604Z Reposition Right Upper Femur with Internal Fixation Device, Open Approach (ICD-10-PCS; principal; 2018-05-23)
DX: S72.011A Unspecified intracapsular fracture of right femur, initial encounter for closed fracture (principal); J98.11 Atelectasis; I50.32 Chronic diastolic (congestive) heart failure; I13.0 Hypertensive heart and chronic kidney disease with heart failure and stage 1 through stage 4 chronic kidney disease, or unspecified chronic kidney disease; I48.92 Unspecified atrial flutter; I48.1 Persistent atrial fibrillation; N39.0 Urinary tract infection, site not specified; G89.29 Other chronic pain; E78.00 Pure hypercholesterolemia, unspecified; N18.3 Chronic kidney disease, stage 3 (moderate); K21.9 Gastro-esophageal reflux disease without esophagitis; J43.2 Centrilobular emphysema; I25.10 Atherosclerotic heart disease of native coronary artery without angina pectoris; W05.0XXA Fall from non-moving wheelchair, initial encounter; M54.9 Dorsalgia, unspecified; Z66 Do not resuscitate; Z88.1 Allergy status to other antibiotic agents; Z88.8 Allergy status to other drugs, medicaments and biological substances; Z79.899 Other long term (current) drug therapy; Z86.73 Personal history of transient ischemic attack (TIA), and cerebral infarction without residual deficits; I25.2 Old myocardial infarction; Z95.5 Presence of coronary angioplasty implant and graft; Z83.6 Family history of other diseases of the respiratory system; Z87.891 Personal history of nicotine dependence; Z95.0 Presence of cardiac pacemaker; Y93.89 Activity, other specified; Y92.89 Other specified places as the place of occurrence of the external cause; Y99.8 Other external cause status; I27.20 Pulmonary hypertension, unspecified